=== PATIENT | female | born 1995 | race Two or more races ===

== ENCOUNTER 2016-09-06 13:33 | Emergency (ER) | payer SELFPAY ==
[2016-09-06] MEDS ORDERED: ACETAMINOPHEN 325 MG TABLET PO ONE (14:18)
[2016-09-06] MEDS ORDERED: PREDNISONE 20 MG TABLET PO ONE (14:20)
--- NOTE | 2016-09-06 14:28 | ER Document Report ---
ED Medical Screen (RME) - General Chief Complaint: Rash Stated Complaint: SORE THROAT Mode of Arrival: Ambulatory Information source: Patient Notes: 21 y/o F presents to ED c/o sore throat, chills, and ear pain over the last 3 days. Also reports has noted itchy rash to groin. Denies chest pain or sob. I have greeted and performed a rapid initial assessment of this patient. A comprehensive ED assessment and evaluation of the patient, analysis of test results and completion of the medical decision making process will be conducted by additional ED providers. TRAVEL OUTSIDE OF THE [place] IN LAST 30 DAYS: No - Related Data Allergies/Adverse Reactions: No Known Allergies Allergy (Unverified 09/06/16 14:20) Past Medical History - Social History Chew tobacco use (# tins/day): No Frequency of alcohol use: None Drug Abuse: None Renal/ Medical History: Denies: Hx Peritoneal Dialysis Physical Exam - Vital signs Vitals: Temp Pulse Resp BP Pulse Ox 99.0 F 124 H 20 113/86 H 99 09/06/16 14:12 09/06/16 14:12 09/06/16 14:12 09/06/16 14:12 09/06/16 14:12 - General General appearance: Alert In distress: None - HEENT Pharynx: Erythema, Exudate - Respiratory Respiratory status: No respiratory distress Breath sounds: Normal Course - Vital Signs Vital signs: Temp Pulse Resp BP Pulse Ox 99.0 F 124 H 20 113/86 H 99 09/06/16 14:12 09/06/16 14:12 09/06/16 14:12 09/06/16 14:12 09/06/16 14:12
[2016-09-06 15:55] LABS: APPEARANCE,URINE SLIGHTLY-CLOUDY; BILIRUBIN,URINE NEGATIVE (NEGATIVE); GLUCOSE, URINE NEGATIVE (NEGATIVE); KETONES,URINE 80 mg/dL (NEGATIVE); LEUKOCYTE ESTERASE,URINE SMALL (NEGATIVE); NITRITE,URINE POSITIVE (NEGATIVE); PROTEIN,URINE 100 mg/dL (NEGATIVE); URINE SPECIFIC GRAVITY 1.018
[2016-09-06] MEDS ORDERED: DEXAMETHASONE SOD PHOSPHATE INJ 4 MG/1 ML VIAL IM ONE (18:37)
[2016-09-06] MEDS ORDERED: PENICILLIN G BENZATHINE 1.2 MILLION UNIT/2 ML DISP.SYRIN IM ONE (18:37)
--- NOTE | 2016-09-06 18:37 | ER Document Report ---
HPI - HPI Patient complains to provider of: sore throat, rash, headache, ear pain Onset: Other - 2 days Quality of pain: Achy Severity: Severe Pain Level: 5 Context: Patient presents to the emergency department with multiple complaints fever headache ear pain sore throat. She reports symptoms started approximately 2 days ago. She reports she's vomited twice. Denies diarrhea. Denies exposure to strep. Also reports she has a rash in the creases of her thighs that started a couple days ago also. Denies nausea at this time. Associated Symptoms: Earache, Fever, Vomiting, Sore throat Exacerbated by: Denies Relieved by: Denies Similar symptoms previously: No Recently seen / treated by doctor: No - CONSTITUTIONAL Constitutional: REPORTS: Fever - EENT EENT: REPORTS: Sore Throat, Ear Pain - NEURO Neurology: REPORTS: Headache - DERM Skin Color: Normal Past Medical History - General Information source: Patient Last Menstrual Period: may, - Social History Smoking Status: Current Every Day Smoker Cigarette use (# per day): Yes - recently quit Chew tobacco use (# tins/day): No Frequency of alcohol use: None Drug Abuse: None Occupation: none Lives with: Family Family History: Hypertension Patient has suicidal ideation: No Patient has homicidal ideation: No - Medical History Medical History: Negative Renal/ Medical History: Denies: Hx Peritoneal Dialysis Surgical Hx: Negative Vertical Provider Document - CONSTITUTIONAL Agree With Documented VS: Yes Exam Limitations: No Limitations General Appearance: WD/WN, No Apparent Distress - nontoxic looking - INFECTION CONTROL TRAVEL OUTSIDE OF THE [place] IN LAST 30 DAYS: No - HEENT HEENT: Atraumatic, Normocephalic, PERRLA, Pharyngeal Exudate, Pharyngeal Erythema - No peritonsillar abscess good clear voice no trismus. negative: Conjuctival Injection, Tympanic Membrane Red, Tympanic Membrane Bulging - NECK Neck: Normal Inspection - RESPIRATORY Respiratory: Breath Sounds Normal, No Respiratory Distress - no cough noted, speaks in clear voice, no sob O2 Sat by Pulse Oximetry: 99 - CARDIOVASCULAR Cardiovascular: Regular Rhythm, Tachycardia - GI/ABDOMEN Gastrointestinal: Abdomen Soft, Abdomen Non-Tender - BACK Back: Normal Inspection - MUSCULOSKELETAL/EXTREMETIES Musculoskeletal/Extremeties: MARU MCMAHON - NEURO Level of Consciousness: Awake, Alert, Appropriate Motor/Sensory: No Motor Deficit - DERM Integumentary: Warm, Dry, Rash - bilateral Erythema rash on thigh creases- no discharge, no pustules Course - Re-evaluation Re-evalutation: 09/06/16 18:48 Patient was instructed on all medications. She is nontoxic looking. No shortness of breath no coughing noted during the entire interview and assessment. Patient instructed on penicillin and steroid injection. She was instructed on the importance of follow-up with the primary care provider for recheck within 1 week. - Vital Signs Vital signs: Temp Pulse Resp BP Pulse Ox 99.0 F 124 H 20 113/86 H 99 09/06/16 14:12 09/06/16 14:12 09/06/16 14:12 09/06/16 14:12 09/06/16 14:12 - Laboratory Laboratory results interpreted by me: 09/06/16 15:30 Urine Protein 100 H Urine Ketones 80 H Urine Blood SMALL H Urine Nitrite POSITIVE H Urine Urobilinogen 4.0 H Ur Leukocyte Esterase SMALL H Discharge - Discharge Clinical Impression: Sore throat, Strep throat, Rash UTI (urinary tract infection) Qualifiers: Urinary tract infection type: site unspecified Hematuria presence: with hematuria Qualified Code(s): N39.0 - Urinary tract infection, site not specified Condition: Stable Disposition: HOME, SELF-CARE Instructions: Urinary Tract Infection ([facility]), Strep Throat ([facility]), Trimethoprim- Sulfa ([facility]), Steroid Medication Injection, Family Physicians / Practices Additional Instructions: *You have been evaluated for a sore throat, strep, Urinary tract infection, rash on thigh creases *Take medication as prescribed *Apply cream twice a day, keep the area clean and dry. Do not shave *Warm salt water gargles and throat lozenges for comfort *Change toothbrush after two days of antibiotics *Do not let anyone drink/eat after you *Good hand washing *Push fluids *monitor your temperature take Tylenol as indicated *Follow-up with a primary care provider within one week for recheck *Return to ED for worsening condition change, needs Prescriptions: Miscellaneous Medication [Happy Hiney Cream] 1 applic TOP BID #30 gm Sulfamethoxazole/Trimethoprim [Bactrim Ds Tablet] 1 each PO BID #10 tablet
[2016-09-06 19:15] VITALS: BP 120/79
== END 2016-09-06 19:20 | disposition home or self-care (01) ==
LOC: ER 13:33
DX: J02.0 Streptococcal pharyngitis (principal); N39.0 Urinary tract infection, site not specified; J02.9 Acute pharyngitis, unspecified; R21 Rash and other nonspecific skin eruption; R51 Headache; H92.09 Otalgia, unspecified ear; F17.210 Nicotine dependence, cigarettes, uncomplicated
CPT/HCPCS: 99283; 96372; 87880; 81025; 81001; 87804; J1100; J0561; J7512

== ENCOUNTER 2016-12-28 03:41 | Emergency (ER) | payer OTHER ==
[2016-12-28 04:39] LABS: APPEARANCE,URINE CLOUDY; BILIRUBIN,URINE NEGATIVE (NEGATIVE); GLUCOSE, URINE NEGATIVE (NEGATIVE); KETONES,URINE NEGATIVE (NEGATIVE); LEUKOCYTE ESTERASE,URINE NEGATIVE (NEGATIVE); NITRITE,URINE NEGATIVE (NEGATIVE); PROTEIN,URINE NEGATIVE (NEGATIVE); URINE SPECIFIC GRAVITY 1.028; UROBILINOGEN,URINE NEGATIVE mg/dL (<2.0)
--- NOTE | 2016-12-28 06:11 | ER Document Report ---
ED General - General Chief Complaint: Vaginal Discharge Stated Complaint: VAGINAL BLEEDING AND BURNING Time Seen by Provider: 12/28/16 06:04 Mode of Arrival: Ambulatory Information source: Patient Notes: 21-year-old female 2 para 0 who is currently a few weeks based on last menstrual period presents with complaints of foul-smelling vaginal discharge. Patient had symptoms have been ongoing for 3-4 days, patient took [id number] Monistat and now she is having some burning and blood when she wipes. Patient denies any significant abdominal pain denies any nausea vomiting TRAVEL OUTSIDE OF THE [place] IN LAST 30 DAYS: No - HPI Onset: Other - 3 day duration Onset/Duration: Worse Quality of pain: Burning Severity: Mild Pain Level: 1 Associated symptoms: Other Exacerbated by: Denies Relieved by: Denies Similar symptoms previously: Yes - Patient has had miscarriage recently. Recently seen / treated by doctor: No - Related Data Allergies/Adverse Reactions: No Known Allergies Allergy (Unverified 12/28/16 03:45) Past Medical History - Social History Smoking Status: Never Smoker Cigarette use (# per day): No Chew tobacco use (# tins/day): No Smoking Education Provided: No Family History: Hypertension Renal/ Medical History: Denies: Hx Peritoneal Dialysis Review of Systems - Review of Systems Notes: REVIEW OF SYSTEMS: CONSTITUTIONAL : Denies fever, chills, or sweats. Denies recent illness. EENT: Denies eye, ear, throat, or mouth pain or symptoms. Denies nasal or sinus congestion or discharge. Denies throat, tongue, or mouth swelling or difficulty swallowing. CARDIOVASCULAR: Denies chest pain. Denies palpitations or racing or irregular heart beat. Denies ankle edema. RESPIRATORY: Denies cough, cold, or chest congestion. Denies shortness of breath, difficulty breathing, or wheezing. GASTROINTESTINAL: Denies abdominal pain or distention. Denies nausea, vomiting , or diarrhea. Denies blood in vomitus, stools, or per rectum. Denies black, tarry stools. Denies constipation. GENITOURINARY: Denies difficulty urinating, painful urination, burning, frequency, blood in urine, or discharge. FEMALE GENITOURINARY: admits to vaginal discharge MUSCULOSKELETAL: Denies back or neck pain or stiffness. Denies joint pain or swelling. SKIN: Denies rash, lesions or sores. HEMATOLOGIC : Denies easy bruising or bleeding. LYMPHATIC: Denies swollen, enlarged glands. NEUROLOGICAL: Denies confusion or altered mental status. Denies passing out or loss of consciousness. Denies dizziness or lightheadedness. Denies headache. Denies weakness or paralysis or loss of use of either side. Denies problems with gait or speech. Denies sensory loss, numbness, or tingling. Denies seizures. PHYSICAL EXAMINATION: GENERAL: Well-appearing, well-nourished and in no acute distress. HEAD: Atraumatic, normocephalic. EYES: Pupils equal round and reactive to light, extraocular movements intact, conjunctiva are normal. ENT: Nares patent, oropharynx clear without exudates. Moist mucous membranes. NECK: Normal range of motion, supple without lymphadenopathy LUNGS: Breath sounds clear to auscultation bilaterally and equal. No wheezes rales or rhonchi. HEART: Regular rate and rhythm without murmurs ABDOMEN: Soft, nontender, nondistended abdomen. No guarding, no rebound. No masses appreciated. Female : pelvic exam performed with nurse in the room, white discharge noted Musculoskeletal: Normal range of motion, no pitting or edema. No cyanosis. NEUROLOGICAL: Cranial nerves grossly intact. Normal speech, normal gait. Normal sensory, motor exams PSYCH: Normal mood, normal affect. SKIN: Warm, Dry, normal turgor, no rashes or lesions noted. PSYCHIATRIC: Denies anxiety or stress. Denies depression, suicidal ideation, or homicidal ideation. ALL OTHER SYSTEMS REVIEWED AND NEGATIVE. Dictation was performed using [employer] voice recognition software Physical Exam - Vital signs Vitals: Temp Pulse Resp BP Pulse Ox 97.6 F 102 H 16 118/74 98 12/28/16 03:44 12/28/16 03:44 12/28/16 03:44 12/28/16 03:44 12/28/16 03:44 Course - Re-evaluation Re-evalutation: 12/28/16 06:34 Patient will be sent for an ultrasound otherwise well-appearing in no distress 12/28/16 07:06 No IUP was confirmed on ultrasound, lab work is pending 12/28/16 07:18 I was notified by lab since patient used an intravaginal cream that they are unable to see any white blood cells any yeast or Trichomonas or bacterial vaginosis therefore the wet prep is being canceled 12/28/16 09:26 Patient's quant is noted to be 150, I will have her recheck in 48 hours for reevaluation of her hCG, I will treat her symptomatically for bacterial vaginosis versus yeast infection given that the culture was contaminated from medication that the patient had already used After performing a Medical Screening Examination, I estimate there is LOW risk for ACUTE APPENDICITIS, BOWEL OBSTRUCTION, ACUTE CHOLECYSTITIS, PERFORATED DIVERTICULITIS, INCARCERATED HERNIA, PANCREATITIS, PELVIC INFLAMMATORY DISEASE, PERFORATED ULCER, ECTOPIC , or TUBO-OVARIAN ABSCESS, thus I consider the discharge disposition reasonable. Also, there is no evidence or peritonitis , sepsis, or toxicity. I have reevaluated this patient multiple times and no significant life threatening changes are noted. The patient and I have discussed the diagnosis and risks, and we agree with discharging home with close follow-up with the understanding that symptoms and presentations can change. We also discussed returning to the Emergency Department immediately if new or worsening symptoms occur. We have discussed the symptoms which are most concerning (e.g., bloody stool, fever, changing or worsening pain, vomiting) that necessitate immediate return. - Vital Signs Vital signs: Temp Pulse Resp BP Pulse Ox 97.6 F 102 H 16 118/74 98 12/28/16 03:44 12/28/16 03:44 12/28/16 03:44 12/28/16 03:44 12/28/16 03:44 - Laboratory Result Diagrams: 12/28/16 07:44 12/28/16 07:44 Laboratory results interpreted by me: 12/28/16 12/28/16 03:56 07:44 ALT 57 H Beta HCG, Quant 152.94 H Urine Blood SMALL H Urine HCG, Qual POSITIVE H - Diagnostic Test Radiology reviewed: Image reviewed, Reports reviewed - no iup noted Discharge - Discharge Clinical Impression: Threatened miscarriage Vaginal discharge during Qualifiers: Trimester: first trimester Qualified Code(s): O26.891 - Other specified related conditions, first trimester; N89.8 - Other specified noninflammatory disorders of vagina Condition: Stable Disposition: HOME, SELF-CARE Instructions: Threatened Miscarriage ([facility]) Additional Instructions: return in 48 hours for recheck or return immediately if there are any other concerns Prescriptions: Fluconazole [Diflucan] 150 mg PO ONCE PRN #1 tablet PRN Reason: Metronidazole [Flagyl 500 mg Tablet] 500 mg PO BID #20 tablet Forms: Follow-Up Laboratory Testing
--- NOTE | 2016-12-28 06:59 | RADIOLOGY REPORT (SQ) ---
EXAM DESCRIPTION: U/S OB TRANSVAGINAL W/O DOP COMPLETED DATE/TIME: 12/28/2016 6:51 am REASON FOR STUDY: + preg vag bleed COMPARISON: None. TECHNIQUE: Transvaginal static and realtime grayscale images acquired of the pelvis. Additional nasir cted spectral and color Doppler images recorded. All images stored on PACs. BHCG: Not available. LIMITATIONS: None. FINDINGS: UTERUS: No visualized intrauterine . 1.7 cm thickness of the endometrium. RIGHT ADNEXA: Normal ovary with normal vascular flow. No adnexal free fluid. No adnexal masses. 3.8 cm. LEFT ADNEXA: Normal ovary with normal vascular flow. No adnexal free fluid. No adnexal masses. 3.4 cm. FREE FLUID: None. OTHER: No other significant finding. IMPRESSION: NO VISUALIZED INTRA- OR EXTRAUTERINE . ECTOPIC CANNOT BE EXCLUDED. FOLLOW-UP ULTRASOUND AND SERIAL BHCG LEVELS STRONGLY RECOMMENDED TO ACCURATELY ASSESS STATU S. TECHNICAL DOCUMENTATION: JOB ID: [id number]- All Rights Reserved
[2016-12-28 07:55] LABS: ABSOLUTE BASOPHILS # (AUTO) 0.1 10^3/uL (0.0-0.2); ABSOLUTE EOSINOPHILS # (AUTO) 0.3 10^3/uL (0.0-0.6); ABSOLUTE LYMPHOCYTES (AUTO) 2.4 10^3/uL (0.5-4.7); ABSOLUTE MONOCYTES (AUTO) 0.5 10^3/uL (0.1-1.4); BASOPHILS % (AUTO) 0.6 % (0-2); HEMATOCRIT 38.8 % (36.0-47.0); HEMOGLOBIN 13.2 g/dL (12.0-15.5); HGB HCT DIFFERENCE 0.8; LYMPHOCYTES % (AUTO) 25.9 % (13-45); MEAN CORPUSCULAR HEMOGLOBIN 29.5 pg (27.0-33.4); MEAN CORPUSCULAR HGB CONC 34.1 g/dL (32.0-36.0); MEAN CORPUSCULAR VOLUME 87 fl (80-97); MONOCYTES % (AUTO) 5.4 % (3-13); RED BLOOD COUNT 4.48 10^6/uL (3.72-5.28); RED CELL DISTRIBUTION WIDTH 12.4 % (11.5-14.0); SEGMENTED NEUTROPHILS % (AUTO) 65.1 % (42-78); WHITE BLOOD COUNT 9.3 10^3/uL (4.0-10.5)
[2016-12-28 09:05] LABS: CHLAM PCR NOT DETECTED (NOT DETECT)
[2016-12-28 09:06] LABS: ALANINE AMINOTRANSFERASE 57 U/L (9-52); ALBUMIN 4.5 g/dL (3.5-5.0); ALKALINE PHOSPHATASE 84 U/L (38-126); ANION GAP 15 (5-19); ASPARTATE AMINO TRANSFERASE 28 U/L (14-36); BILIRUBIN,DIRECT 0.3 mg/dL (0.0-0.4); BILIRUBIN,TOTAL 0.5 mg/dL (0.2-1.3); BLOOD UREA NITROGEN 8 mg/dL (7-20); CALCIUM 9.9 mg/dL (8.4-10.2); CARBON DIOXIDE 22 mmol/L (22-30); CHLORIDE 104 mmol/L (98-107); CREATININE RESULT 0.55 mg/dL (0.52-1.25); GLUCOSE 100 mg/dL (75-110); POTASSIUM 4.5 mmol/L (3.6-5.0); SODIUM 140.6 mmol/L (137-145); TOTAL PROTEIN 7.7 g/dL (6.3-8.2)
[2016-12-28 09:42] VITALS: BP 120/78
== END 2016-12-28 09:44 | disposition home or self-care (01) ==
LOC: ER 03:41
DX: O20.0 Threatened abortion (principal); O26.891 Other specified pregnancy related conditions, first trimester; N89.8 Other specified noninflammatory disorders of vagina; Z3A.01 Less than 8 weeks gestation of pregnancy
CPT/HCPCS: 36415; 76817; 80053; 81001; 81025; 84702; 85025; 86900; 86901; 87210; 87491; 87591; 99283

== ENCOUNTER 2016-12-30 14:28 | Emergency (ER) | payer OTHER ==
--- NOTE | 2016-12-30 16:05 | ER Document Report ---
HPI - HPI Patient complains to provider of: low hcg and vaginal spotting Pain Level: Denies Context: Patient is a 21 year old female who presents complaining of vaginal bleeding since 12/29 when she was evaluated here and told to follow up in 48 hours for repeat blood work. Vaginal bleeding has been stable described as spotting and less then before. LMP was two months ago. admits to chronic pelvic cramps since she learned she was but minimal discomfort without pelvic or abdominal pain, n/v/d/c. Denies fever or chills. No pcp, will be established with [place] [facility] january 15 - Skin Color: Normal Past Medical History - Social History Smoking Status: Former Smoker Chew tobacco use (# tins/day): No Frequency of alcohol use: None Drug Abuse: None Family History: Hypertension Patient has suicidal ideation: No Patient has homicidal ideation: No Renal/ Medical History: Denies: Hx Peritoneal Dialysis Surgical Hx: Negative - Immunizations Hx Diphtheria, Pertussis, Tetanus Vaccination: Yes Vertical Provider Document - CONSTITUTIONAL Agree With Documented VS: Yes Exam Limitations: No Limitations General Appearance: WD/WN, No Apparent Distress Notes: PHYSICAL EXAM GENERAL: Alert, interacts well. HEAD: Normocephalic, atraumatic. EYES: Pupils equal, round, and reactive to light. Extraocular movements intact. ENT: Oral mucosa moist, tongue midline. NECK: Full range of motion. Supple. Trachea midline. LUNGS: Clear to auscultation bilaterally, no wheezes, rales, or rhonchi. No respiratory distress. HEART: Regular rate and rhythm. No murmurs, gallops, or rubs. ABDOMEN: Soft, nondistended, nontender. No guarding, rebound, or rigidity.. Bowel sounds present in all 4 quadrants. EXTREMITIES: Moves all 4 extremities spontaneously. No edema, radial and dorsalis pedis pulses 2/4 bilaterally. No cyanosis. NEUROLOGICAL: Alert and oriented x4. Normal speech. PSYCH: Normal affect, normal mood. SKIN: Warm, dry, normal turgor. No rashes or lesions noted. - INFECTION CONTROL TRAVEL OUTSIDE OF THE [place] IN LAST 30 DAYS: No Course - Re-evaluation Re-evalutation: 12/30/16 16:05 The 21-year-old female hemodynamic stable, no acute distress and afebrile. Initial beta-hCG and visit on December 29 was 152 and repeat today was 93. Discussed with patient that these findings support a threatened miscarriage and that she is indicated to follow-up in 48 hours for repeat blood work. Discussed signs and symptoms. Indicating return to the emergency department. Patient agrees with plan. - Laboratory Result Diagrams: 12/30/16 16:26 12/30/16 16:26 Discharge - Discharge Clinical Impression: Threatened miscarriage Condition: Good Disposition: HOME, SELF-CARE Instructions: Threatened Miscarriage ([facility]), Repeat Blood Test ([facility]), [employer] Forms: Follow-Up Laboratory Testing [facility] - Follow up as needed
[2016-12-30 16:36] LABS: ABSOLUTE BASOPHILS # (AUTO) 0.1 10^3/uL (0.0-0.2); ABSOLUTE EOSINOPHILS # (AUTO) 0.3 10^3/uL (0.0-0.6); ABSOLUTE LYMPHOCYTES (AUTO) 2.8 10^3/uL (0.5-4.7); ABSOLUTE MONOCYTES (AUTO) 0.6 10^3/uL (0.1-1.4); BASOPHILS % (AUTO) 0.7 % (0-2); EOSINOPHILS % (AUTO) 2.7 % (0-6); HEMATOCRIT 39.7 % (36.0-47.0); HEMOGLOBIN 13.3 g/dL (12.0-15.5); HGB HCT DIFFERENCE 0.2; LYMPHOCYTES % (AUTO) 23.8 % (13-45); MEAN CORPUSCULAR HEMOGLOBIN 29.3 pg (27.0-33.4); MEAN CORPUSCULAR HGB CONC 33.6 g/dL (32.0-36.0); MEAN CORPUSCULAR VOLUME 87 fl (80-97); MONOCYTES % (AUTO) 5.4 % (3-13); RED BLOOD COUNT 4.54 10^6/uL (3.72-5.28); RED CELL DISTRIBUTION WIDTH 12.5 % (11.5-14.0); SEGMENTED NEUTROPHILS % (AUTO) 67.4 % (42-78); WHITE BLOOD COUNT 11.9 10^3/uL (4.0-10.5)
[2016-12-30 16:58] LABS: ANION GAP 13 (5-19); BLOOD UREA NITROGEN 10 mg/dL (7-20); CALCIUM 10.3 mg/dL (8.4-10.2); CARBON DIOXIDE 22 mmol/L (22-30); CHLORIDE 106 mmol/L (98-107); CREATININE RESULT 0.56 mg/dL (0.52-1.25); GLUCOSE 88 mg/dL (75-110); POTASSIUM 4.3 mmol/L (3.6-5.0); SODIUM 141.4 mmol/L (137-145)
== END 2016-12-30 16:55 | disposition home or self-care (01) ==
LOC: ER 14:28
DX: O20.0 Threatened abortion (principal); O26.899 Other specified pregnancy related conditions, unspecified trimester; R10.2 Pelvic and perineal pain; Z3A.00 Weeks of gestation of pregnancy not specified; Z87.891 Personal history of nicotine dependence
CPT/HCPCS: 36415; 80048; 85025; 99284

== ENCOUNTER → 2016-12-30 | Outpatient (CLI) | payer OTHER | LOC: OD 09:51 | PROVIDERS: ATTEND Emergency Medicine | DX: N93.9 Abnormal uterine and vaginal bleeding, unspecified (principal) | CPT/HCPCS: 36415; 84702 ==

== ENCOUNTER 2017-08-16 23:47 | Emergency (ER) | payer OTHER ==
[2017-08-17] MEDS ORDERED: ONDANSETRON 4 MG TAB.RAPDIS PO ONE (01:04)
[2017-08-17] MEDS ORDERED: DEXAMETHASONE SOD PHOS INJ 10 MG/1 ML VIAL IM ONE (01:11)
[2017-08-17] MEDS ORDERED: KETOROLAC TROMETHAMINE 60 MG/2 ML SDV IM ONE (01:11)
--- NOTE | 2017-08-17 01:15 | ER Document Report ---
ED Medical Screen (RME) - General Chief Complaint: Sore Throat Stated Complaint: SORE THROAT Time Seen by Provider: 08/17/17 01:04 Mode of Arrival: Ambulatory Information source: Patient Notes: 22-year-old female presented to ED for fever and sore throat for 3 days. She states she is gotten to the point now where it is difficult for her to swallow. She states she has been nauseated this evening and has started vomiting while in the emergency room. She states she always has a very elevated pulse when she is sick and while in the emergency room her pulse is 114 O2 sats 99% with a temperature of 98 7. Her tonsils are enlarged and erythematous her oropharynx strawberry appearing. She does have a lot of postnasal drip. Her voice is slightly muffled. I have greeted and performed a rapid initial assessment of this patient. A comprehensive ED assessment and evaluation of the patient, analysis of test results and completion of medical decision making process will be conducted by an additional ED providers. TRAVEL OUTSIDE OF THE [place] IN LAST 30 DAYS: No - Related Data Allergies/Adverse Reactions: No Known Allergies Allergy (Verified 08/16/17 23:49) Past Medical History Renal/ Medical History: Denies: Hx Peritoneal Dialysis - Immunizations Hx Diphtheria, Pertussis, Tetanus Vaccination: Yes Physical Exam - Vital signs Vitals: Temp Pulse Resp BP Pulse Ox 97.5 F 120 H 20 132/92 H 99 08/17/17 00:02 08/17/17 00:02 08/17/17 00:02 08/17/17 00:02 08/17/17 00:02 Course - Vital Signs Vital signs: Temp Pulse Resp BP Pulse Ox 97.5 F 120 H 20 132/92 H 99 08/17/17 00:02 08/17/17 00:02 08/17/17 00:02 08/17/17 00:02 08/17/17 00:02
[2017-08-17 01:34] LABS: APPEARANCE,URINE CLEAR; BILIRUBIN,URINE NEGATIVE (NEGATIVE); COLOR,URINE STRAW; GLUCOSE, URINE NEGATIVE (NEGATIVE); KETONES,URINE NEGATIVE (NEGATIVE); LEUKOCYTE ESTERASE,URINE NEGATIVE (NEGATIVE); NITRITE,URINE NEGATIVE (NEGATIVE); PROTEIN,URINE NEGATIVE (NEGATIVE); URINE SPECIFIC GRAVITY 1.005; UROBILINOGEN,URINE NEGATIVE mg/dL (<2.0)
[2017-08-17 02:17] LABS: A TYPE INFLUENZA AG NEGATIVE (NEGATIVE); B INFLUENZA AG NEGATIVE (NEGATIVE)
[2017-08-17] MEDS ORDERED: ONDANSETRON ODT 4 MG TAB (6 TAB/ER DISP) PO PRN (02:33)
[2017-08-17] MEDS ORDERED: PENICILLIN G BENZATHINE 1.2 MILLION UNIT/2 ML DISP.SYRIN IM ONE (02:33)
--- NOTE | 2017-08-17 02:36 | ER Document Report ---
ED General - General Chief Complaint: Sore Throat Stated Complaint: SORE THROAT Time Seen by Provider: 08/17/17 01:04 Mode of Arrival: Ambulatory Notes: Patient is a 22-year-old female presents with complaint of sore throat. She says she has a history recurrent strep infections. She has had a previous tonsillectomy. She has had over the last 24 hours she has had worsening sore throat and fevers at home. No vomiting. She says it hurts to swallow but she is able to still swallow. When she first arrived she was given a shot of Decadron by the nurse practitioner in triage. She is since then she cannot open her mouth much more easily and her voice is getting some better but she still has pain. She denies any other complaints at this time. TRAVEL OUTSIDE OF THE [place] IN LAST 30 DAYS: No - Related Data Allergies/Adverse Reactions: No Known Allergies Allergy (Verified 08/16/17 23:49) Past Medical History - General Information source: Patient - Social History Smoking Status: Former Smoker Chew tobacco use (# tins/day): No Frequency of alcohol use: None Drug Abuse: None Family History: Hypertension Patient has suicidal ideation: No Patient has homicidal ideation: No Renal/ Medical History: Denies: Hx Peritoneal Dialysis Past Surgical History: Reports: Hx Orthopedic Surgery, Hx Tonsillectomy - Immunizations Hx Diphtheria, Pertussis, Tetanus Vaccination: Yes Review of Systems - Review of Systems Notes: My Normal Review Basic REVIEW OF SYSTEMS: CONSTITUTIONAL : Fever EENT: Sore throat. CARDIOVASCULAR: Denies chest pain. RESPIRATORY: Denies cough, cold, or chest congestion. Denies shortness of breath, difficulty breathing, or wheezing. GASTROINTESTINAL: Denies abdominal pain. Denies nausea, vomiting, or diarrhea. MUSCULOSKELETAL: Denies neck or back pain or joint pain or swelling. SKIN: Denies rash or skin lesions. NEUROLOGICAL: Denies altered mental status or loss of consciousness. Denies headache. Denies weakness or paralysis or loss of use of either side. Denies problems with gait or speech. Denies sensory or motor loss. ALL OTHER SYSTEMS REVIEWED AND NEGATIVE. Physical Exam - Vital signs Vitals: Temp Pulse Resp BP Pulse Ox 97.5 F 120 H 20 132/92 H 99 08/17/17 00:02 08/17/17 00:02 08/17/17 00:02 08/17/17 00:02 08/17/17 00:02 - Notes Notes: General Appearance: Well nourished, alert, cooperative, no acute distress, no obvious discomfort. Well-appearing. Vitals: reviewed, See vital signs table. Head: no swelling or tenderness to the head Eyes: PERRL, EOMI, Conjuctiva clear Mouth: No decreasd moisture Throat: Erythematous posterior pharynx. No swelling or induration that would cause concern of peritonsillar abscess. Patient no longer has trismus and is able to fully open her mouth. Neck: Supple, no neck tenderness, No thyromegaly Lungs: No wheezing, No rales, No rhonci, No accessory muscle use, good air exchange bilaterally. Heart: Normal rate, Regular rythm, No murmur, no rub Extremities: strength 5/5 in all extremities, good pulses in all extremities, no swelling or tenderness in the extremitie Skin: warm, dry, appropriate color, no rash Neuro: speech clear, oriented x 3, normal affect, responds appropriately to questions. Course - Re-evaluation Re-evalutation: 08/17/17 06:45 Patient is very well-appearing. I feel patient is safe to be discharged home. It seems that she started have improvement after Decadron. I will also give her a shot of penicillin being that her throat is consistent with probable strep pharyngitis and she has a history recurrent strep infections. I informed her return to ER immediately if she has difficulty breathing, difficulty swallowing, or feels that she is worsening in any way. Patient does not have findings consistent with peritonsillar abscess. She has no swelling or inflammation and what would be the peritonsillar spaces. Her uvula is midline. Dictation of this chart was performed using voice recognition software; therefore, there may be some unintended grammatical errors. - Vital Signs Vital signs: Temp Pulse Resp BP Pulse Ox 98.7 F 90 18 103/64 98 08/17/17 02:57 08/17/17 02:57 08/17/17 02:57 08/17/17 02:57 08/17/17 02:57 Discharge - Discharge Clinical Impression: Pharyngitis Qualifiers: Pharyngitis/tonsillitis etiology: unspecified etiology Qualified Code(s): J02.9 - Acute pharyngitis, unspecified Condition: Good Disposition: HOME, SELF-CARE Additional Instructions: Your history and physical exam findings are consistent with strep pharyngitis. We will give you a shot of penicillin. We also gave you a shot of Decadron which is a steroid. I will send you home with Zofran. Zofran is a medicine you can take for nausea. Please take 1 tablet as needed for vomiting not to exceed 1 tablet every 4 hours. Please return to the ER immediately if you have difficulty breathing, worsening difficulty swallowing, inability to open your mouth, fevers, or feel that you are worsening.
[2017-08-17] MEDS ORDERED: FLUCONAZOLE 100 MG TABLET PO ONE (02:47)
[2017-08-17 02:59] VITALS: BP 103/64
== END 2017-08-17 02:57 | disposition home or self-care (01) ==
LOC: ER 23:47
DX: J02.9 Acute pharyngitis, unspecified (principal); R50.9 Fever, unspecified; Z87.891 Personal history of nicotine dependence
CPT/HCPCS: 99283; 96372; 87070; 87880; 81025; 87077; 81001; 87804; J1885; S0119; J0561; J1100

== ENCOUNTER 2018-06-11 18:29 | Emergency (ER) | payer OTHER ==
--- NOTE | 2018-06-11 18:45 | ER Document Report ---
HPI - HPI Patient complains to provider of: back pain Time Seen by Provider: 06/11/18 18:45 Onset: Other - 5 Months Quality of pain: Achy Severity: Severe Pain Level: 5 Context: Patient presents emergency department with complaints of low back pain for the past 5 months. Reports she started working at [employer] where she sits all day. She will reports they do have ergonomic chairs but her back aches after she works. Denies fever vomiting diarrhea. Denies urinary bowel incontinence or retention. Denies numbness or tingling. Patient ambulating without problems. Denies trauma. Reports she is taking Motrin on and off without relief of symptoms. Patient was asked about denies, reports there is no way. Denies dysuria Past Medical History - General Information source: Patient Last Menstrual Period: may 18- denies - Social History Smoking Status: Unknown if Ever Smoked Cigarette use (# per day): No Frequency of alcohol use: None Drug Abuse: None Occupation: [employer] Lives with: Family Family History: Hypertension Patient has suicidal ideation: No Patient has homicidal ideation: No Renal/ Medical History: Denies: Hx Peritoneal Dialysis Psychiatric Medical History: Reports: Hx Anxiety Past Surgical History: Reports: Hx Orthopedic Surgery, Hx Tonsillectomy - Immunizations Hx Diphtheria, Pertussis, Tetanus Vaccination: Yes Vertical Provider Document - CONSTITUTIONAL Agree With Documented VS: Yes Exam Limitations: No Limitations General Appearance: WD/WN, No Apparent Distress - INFECTION CONTROL TRAVEL OUTSIDE OF THE [place] IN LAST 30 DAYS: No - HEENT HEENT: Atraumatic, Normocephalic - NECK Neck: Normal Inspection, Supple. negative: Lymphadenopathy-Left, Lymphadenopathy-Right - RESPIRATORY Respiratory: Breath Sounds Normal, No Respiratory Distress - CARDIOVASCULAR Cardiovascular: Regular Rate - GI/ABDOMEN Gastrointestinal: Abdomen Soft, Abdomen Non-Tender - BACK Back: Normal Inspection - No obvious deformity good distal movement and sensation negative straight leg test no weakness, ambulates without problems - MUSCULOSKELETAL/EXTREMETIES Musculoskeletal/Extremeties: MAEW, FROM, Non-Tender - NEURO Level of Consciousness: Awake, Alert, Appropriate Motor/Sensory: No Motor Deficit - DERM Integumentary: Warm, Dry Adult Front & Back Diagram: 1 - Orts low backache Course - Re-evaluation Re-evalutation: 06/11/18 19:03 Patient was instructed on conservative treatment for low back pain. To include ibuprofen and Flexeril. Patient was cautioned that she cannot take these medications if she is . She reports she is not no way. Patient was instructed to follow-up with her primary care provider she is dependent and able to follow-up with somebody. She was instructed to follow-up with a chiropractor her primary care provider. Dictation of this chart was performed using voice recognition software; therefore, there may be some unintended grammatical errors. Discharge - Discharge Clinical Impression: Low back pain Qualifiers: Chronicity: unspecified Back pain laterality: bilateral Sciatica presence: without sciatica Qualified Code(s): M54.5 - Low back pain Condition: Stable Disposition: HOME, SELF-CARE Instructions: Ice Packs ([facility]), Low Back Pain ([facility]), Warm Packs ([facility]), Muscle Relaxers ([facility]), Chiropractor, Ibuprofen (General) ([facility]) Additional Instructions: *You have been evaluated for back pain *Take medication as prescribed *Rest/Ice packs and heat as indicated *Follow up with a primary care provider within one week for recheck *Return to ED for worsening condition, changes, needs, concerns Prescriptions: Cyclobenzaprine HCl [Flexeril 5 mg Tablet] 5 mg PO TID #15 tablet Ibuprofen [Motrin 800 mg Tablet] 800 mg PO TID #30 tablet
[2018-06-11 19:02] VITALS: BP 127/86
== END 2018-06-11 19:06 | disposition home or self-care (01) ==
LOC: ER 18:29
DX: M54.5 Low back pain (principal)
CPT/HCPCS: 99283

== ENCOUNTER 2018-12-02 23:58 | Emergency (ER) | payer SELFPAY ==
--- NOTE | 2018-12-03 01:26 | ER Document Report ---
HPI - HPI Time Seen by Provider: 12/03/18 01:09 Pain Level: 5 Context: Patient is a 23-year-old female who presents the emergency department complaints. She states that she has had sinus pressure for the past week and has progressively gotten worse. She states that she also has left ear pain with drainage. States she has a sore throat, headaches, fever, and vomiting. Her vomiting and diarrhea started today, but she is able to keep food down. Patient has also been taking Afrin, NyQuil, DayQuil, and ibuprofen to help with her symptoms, but continues to have left ear pain and sinus pressure. Past medical history includes " heart conditions" but the patient states that her doctors have not found out why she has her heart problems. She currently takes control. - CONSTITUTIONAL Constitutional: REPORTS: Fever. DENIES: Chills - EENT EENT: REPORTS: Sore Throat, Ear Pain - Left, drainage, Nasal Drainage-Clear, Congestion. DENIES: Nasal Drainage-Purulent, Eye problems Notes: Maxillary sinus pain - NEURO Neurology: REPORTS: Headache, Weakness. DENIES: Vision blurred, Dizzinesss / Vertigo - CARDIOVASCULAR Cardiovascular: DENIES: Chest pain - RESPIRATORY Respiratory: REPORTS: Coughing. DENIES: Trouble Breathing - GASTROINTESTINAL Gastrointestinal: REPORTS: Nausea, Patient vomiting. DENIES: Abdominal Pain, Diarrhea - URINARY Urinary: DENIES: Dysuria - REPRODUCTIVE Reproductive: DENIES: : - MUSCULOSKELETAL Musculoskeletal: DENIES: Extremity pain - DERM Skin Color: Normal Skin Problems: None Past Medical History - Social History Smoking Status: Current Some Day Smoker Frequency of alcohol use: None Drug Abuse: None Family History: Hypertension Patient has suicidal ideation: No Patient has homicidal ideation: No Renal/ Medical History: Denies: Hx Peritoneal Dialysis Psychiatric Medical History: Reports: Hx Anxiety Past Surgical History: Reports: Hx Orthopedic Surgery, Hx Tonsillectomy - Immunizations Hx Diphtheria, Pertussis, Tetanus Vaccination: Yes Vertical Provider Document - CONSTITUTIONAL Agree With Documented VS: Yes Exam Limitations: No Limitations General Appearance: No Apparent Distress - INFECTION CONTROL TRAVEL OUTSIDE OF THE [place] IN LAST 30 DAYS: No - HEENT HEENT: Atraumatic, Normocephalic, PERRLA, Pharyngeal Erythema, Tympanic Membrane Red - Left, With purulent drainage, Tympanic Membrane Bulging. negative: Pharyngeal Exudate Notes: Tender maxillary and frontal sinuses bilaterally. Erythema, purulent drainage, and edema noted to left external auditory canal. - NECK Neck: Normal Inspection, Supple - RESPIRATORY Respiratory: Breath Sounds Normal, No Respiratory Distress - CARDIOVASCULAR Cardiovascular: Regular Rate, Regular Rhythm Pulses: Normal: Radial - MUSCULOSKELETAL/EXTREMETIES Musculoskeletal/Extremeties: FROM - NEURO Level of Consciousness: Awake, Alert, Appropriate Motor/Sensory: No Motor Deficit, No Sensory Deficit - DERM Integumentary: Warm, Dry, No Rash Course - Re-evaluation Re-evalutation: 12/03/18 01:26 Patient's physical exam is consistent with left otitis media and left otitis externa. She will be started on Ciprodex and given Augmentin for coverage of a sinus infection also. Patient does have maxillary and frontal sinus pain upon palpation. Patient does not have tenderness noted to her mastoid process. I have a very low suspicion for mastoiditis. Patient's uvula is midline, ruling out any peritonsillar abscess. I have instructed her to stop using her Afrin. I will prescribe her Flonase. She will follow-up with her primary care provider. Patient is in agreement with this plan. Verbal discharge instructions were given to the patient. They verbalized understanding. They are stable for discharge. - Vital Signs Vital signs: Temp Pulse Resp BP Pulse Ox 97.5 F 86 16 122/79 98 12/03/18 00:08 12/03/18 00:08 12/03/18 00:08 12/03/18 00:08 12/03/18 00:08 Discharge - Discharge Clinical Impression: Otitis media Qualifiers: Otitis media type: mucoid Chronicity: acute Laterality: left Qualified Code(s): H65.112 - Acute and subacute allergic otitis media (mucoid) (sanguinous) (serous), left ear Otitis externa Qualifiers: Otitis externa type: noninfectious Noninfectious otitis externa type: other type Chronicity: acute Laterality: left Qualified Code(s): H60.592 - Other noninfective acute otitis externa, left ear Condition: Stable Disposition: HOME, SELF-CARE Instructions: Use of Ear Drops ([facility]), Otitis Externa ([facility]) Additional Instructions: You are seen today in the emergency department for sinus pressure, ear pain, fever, vomiting, and an upset stomach. You have an inner ear infection and an outer ear infection. You were provided eardrops here in the emergency department. Please place 4 drops in your left ear twice a day for 7 days. You are also being started on Augmentin and antibiotic. This will cover both your ear infection in your sinus infection. Please take all your antibiotics as prescribed. Please stop taking your Afrin. You are also being started on Flonase. Please use as directed. You are being sent home with Zofran, medication for nausea and vomiting. Take 1 tablet every 4-6 hours as needed for nausea and vomiting. You are also being given Pepcid, medication to help with your stomach. You could take 1 tablet twice a day as needed. You can take Tylenol 1000 mg and ibuprofen 600 mg every 6 hours for your pain and fever. Prescriptions: Acetaminophen [Acetaminophen Extra Strength] 1,000 mg PO Q6HP PRN #30 tablet PRN Reason: Pain Scale Of 1 Amox Tr/Potassium Clavulanate [Augmentin 875-125 Tablet] 1 tab PO BID 10 Days #20 tablet RX: Famotidine [Pepcid 20 mg Tablet] 20 mg PO BID #12 tablet Fluticasone Propionate [Flonase Nasal Vernalis 50 Mcg/Vernalis 16 gm] 2 sprays NASL DAILY #1 inhaler
[2018-12-03] MEDS ORDERED: ONDANSETRON HCL INJ/PF 4 MG/2 ML SDV IV ONE (01:28)
[2018-12-03] MEDS ORDERED: CIPROFLOXACIN HCL/DEXAMETH OTIC DROP 7.5 ML AS ONE (01:28)
[2018-12-03] MEDS ORDERED: AMOXICILLIN TR/POT CLAVULANATE 500-125 MG TAB PO ONE (01:28)
[2018-12-03] MEDS ORDERED: ONDANSETRON ODT 4 MG TAB (6 TAB/ER DISP) PO PRN (01:31)
[2018-12-03 01:59] VITALS: BP 117/78
== END 2018-12-03 01:59 | disposition home or self-care (01) ==
LOC: ER 23:58
DX: H65.112 Acute and subacute allergic otitis media (mucoid) (sanguinous) (serous), left ear (principal); H60.592 Other noninfective acute otitis externa, left ear; J32.9 Chronic sinusitis, unspecified; J02.9 Acute pharyngitis, unspecified; J34.89 Other specified disorders of nose and nasal sinuses; R51 Headache; R50.9 Fever, unspecified; R19.7 Diarrhea, unspecified; R53.1 Weakness; R05 Cough; R11.2 Nausea with vomiting, unspecified; Z79.3 Long term (current) use of hormonal contraceptives; F17.200 Nicotine dependence, unspecified, uncomplicated
CPT/HCPCS: 99283; J3490

== ENCOUNTER 2019-01-20 00:45 | Emergency (ER) | payer SELFPAY ==
--- NOTE | 2019-01-20 04:02 | ER Document Report ---
HPI - HPI Time Seen by Provider: 01/20/19 03:23 Pain Level: 5 Context: Patient is a 23-year-old female that comes to the emergency department for chief complaint of rectal pain for the past 2 days. She states she had a painful bowel movement earlier. She denies rectal bleeding, injury, abdominal pain, flank pain otherwise. She does admit to recent constipation. She denies fever/chills, nausea/vomiting. She denies any daily medications except control. Past medical history of tonsillectomy and orthopedic surgeries. Denies any medical history otherwise. - REPRODUCTIVE Reproductive: DENIES: : - DERM Skin Color: Normal Past Medical History - General Information source: Patient - Social History Smoking Status: Never Smoker Chew tobacco use (# tins/day): No Frequency of alcohol use: Occasional Drug Abuse: Marijuana Lives with: Family Family History: Hypertension Patient has suicidal ideation: No Patient has homicidal ideation: No Renal/ Medical History: Denies: Hx Peritoneal Dialysis Psychiatric Medical History: Reports: Hx Anxiety Past Surgical History: Reports: Hx Orthopedic Surgery, Hx Tonsillectomy - Immunizations Hx Diphtheria, Pertussis, Tetanus Vaccination: Yes Vertical Provider Document - CONSTITUTIONAL General Appearance: WD/WN, No Apparent Distress - INFECTION CONTROL TRAVEL OUTSIDE OF THE [place] IN LAST 30 DAYS: No - HEENT HEENT: Atraumatic, Normal ENT Exam, Normocephalic - NECK Neck: Normal Inspection - RESPIRATORY Respiratory: Breath Sounds Normal - CARDIOVASCULAR Cardiovascular: Regular Rate, Regular Rhythm - GI/ABDOMEN Gastrointestinal: Abdomen Soft. negative: Abdomen Non-Tender - Abdominal exam is benign. There is a small external hemorrhoid noted at the 4 o'clock position and also an internal hemorrhoid noted on examination in a similar location. There is no severe tenderness. There is no induration, fluctuance, or erythema suggesting an abscess. No fissure noted. No current bleeding. Otherwise unremarkable exam. Exam performed with Anette LOPES present at bedside. - BACK Back: Normal Inspection - MUSCULOSKELETAL/EXTREMETIES Musculoskeletal/Extremeties: MAEW, FROM, Non-Tender - NEURO Level of Consciousness: Awake, Alert, Appropriate Motor/Sensory: No Motor Deficit, No Sensory Deficit - DERM Integumentary: Warm, Dry, No Rash Course - Re-evaluation Re-evalutation: Exam indicates internal and external hemorrhoid without evidence for abscess or other infection on exam. No other concerning findings noted. This is also consistent with patient's reported recent constipation. Patient will be treated for her small hemorrhoids, discussed details, follow-up, return precautions. Patient states understanding and agreement. - Vital Signs Vital signs: Temp Pulse Resp BP Pulse Ox 98.3 F 78 16 113/79 100 01/20/19 01:17 01/20/19 01:17 01/20/19 01:17 01/20/19 01:01/20/19 01:17 Discharge - Discharge Clinical Impression: Rectal pain Condition: Stable Disposition: HOME, SELF-CARE Additional Instructions: Your evaluation is consistent with dilated veins at the internal and external area consistent with developing hemorrhoids. Recommendation is to take stool softeners for the next several days, apply the topical cream to the painful area, use over the counter Tucks cleansing pads, and perform warm sitz-baths. Increase fiber in your diet. Avoid any straining with bowel movements, avoid long periods of time on the toilet. You should call the doctor or return if you develop fever, increasing pain, or an enlarging mass around the anus, or if you simply fail to improve with treatment. Prescriptions: Docusate Sodium [Colace 100 mg Capsule] 100 mg PO ASDIR PRN #30 capsule PRN Reason: Hydrocortisone [Proctozone-Hc] 30 gm RC ASDIR PRN #1 cream.gm. PRN Reason: Forms: Return to Work
[2019-01-20 04:33] VITALS: BP 124/82
== END 2019-01-20 04:33 | disposition home or self-care (01) ==
LOC: ER 00:45
DX: K62.89 Other specified diseases of anus and rectum (principal)
CPT/HCPCS: 99283

== ENCOUNTER 2019-07-15 18:33 | Emergency (ER) | payer SELFPAY ==
--- NOTE | 2019-07-15 19:13 | ER Document Report ---
ED Medical Screen (RME) - General Chief Complaint: Vomiting Stated Complaint: VOMITING,DIZZINESS,ABDOMINAL PAIN Time Seen by Provider: 07/15/19 19:06 Mode of Arrival: Ambulatory Information source: Patient Notes: 24-year-old female with complaints of abdominal cramps nausea vomiting and possible . She reports that she had a miscarriage approximately 1 month ago. She reports she has had sex since then. She also reports she did take a test x3. 1 of them look like she was the other 2 did not. Patient is G5, P0 denies pain with void I have greeted and performed a rapid initial assessment of this patient. A comprehensive ED assessment and evaluation of the patient, analysis of test results and completion of the medical decision making process will be conducted by additional ED providers. TRAVEL OUTSIDE OF THE [place] IN LAST 30 DAYS: No - Related Data Allergies/Adverse Reactions: No Known Allergies Allergy (Verified 08/16/17 23:49) Past Medical History Renal/ Medical History: Denies: Hx Peritoneal Dialysis Psychiatric Medical History: Reports: Hx Anxiety Past Surgical History: Reports: Hx Orthopedic Surgery, Hx Tonsillectomy - Immunizations Hx Diphtheria, Pertussis, Tetanus Vaccination: Yes
[2019-07-15 19:52] LABS: ABSOLUTE BASOPHILS # (AUTO) 0.1 10^3/uL (0.0-0.2); ABSOLUTE EOSINOPHILS # (AUTO) 0.3 10^3/uL (0.0-0.6); ABSOLUTE LYMPHOCYTES (AUTO) 4.3 10^3/uL (0.5-4.7); ABSOLUTE MONOCYTES (AUTO) 0.6 10^3/uL (0.1-1.4); ABSOLUTE NEUT (AUTO) 8.2 10^3/uL (1.7-8.2); BASOPHILS % (AUTO) 0.7 % (0-2); EOSINOPHILS % (AUTO) 1.9 % (0-6); HEMATOCRIT 41.1 % (36.0-47.0); HEMOGLOBIN 14.2 g/dL (12.0-15.5); LYMPHOCYTES % (AUTO) 31.7 % (13-45); MEAN CORPUSCULAR HEMOGLOBIN 30.3 pg (27.0-33.4); MEAN CORPUSCULAR HGB CONC 34.6 g/dL (32.0-36.0); MEAN CORPUSCULAR VOLUME 87 fl (80-97); MONOCYTES % (AUTO) 4.8 % (3-13); PLATELET COUNT 326 10^3/uL (150-450); RED CELL DISTRIBUTION WIDTH 12.7 % (11.5-14.0); SEGMENTED NEUTROPHILS % (AUTO) 60.9 % (42-78); TOTAL CELLS COUNTED % (AUTO) 100 %; WHITE BLOOD COUNT 13.5 10^3/uL (4.0-10.5)
[2019-07-15 19:58] LABS: APPEARANCE,URINE SLIGHTLY-CLOUDY; BILIRUBIN,URINE NEGATIVE (NEGATIVE); COLOR,URINE YELLOW; GLUCOSE, URINE NEGATIVE (NEGATIVE); KETONES,URINE TRACE mg/dL (NEGATIVE); LEUKOCYTE ESTERASE,URINE NEGATIVE (NEGATIVE); NITRITE,URINE NEGATIVE (NEGATIVE); PROTEIN,URINE 30 mg/dL (NEGATIVE); URINE SPECIFIC GRAVITY 1.027
[2019-07-15 20:10] LABS: ALBUMIN 4.8 g/dL (3.5-5.0); ALKALINE PHOSPHATASE 70 U/L (38-126); ANION GAP 12 (5-19); ASPARTATE AMINO TRANSFERASE 18 U/L (14-36); BILIRUBIN,DIRECT 0.3 mg/dL (0.0-0.4); BILIRUBIN,TOTAL 0.4 mg/dL (0.2-1.3); BLOOD UREA NITROGEN 11 mg/dL (7-20); CARBON DIOXIDE 25 mmol/L (22-30); CHLORIDE 107 mmol/L (98-107); GLUCOSE 93 mg/dL (75-110); POTASSIUM 4.5 mmol/L (3.6-5.0); TOTAL PROTEIN 8.1 g/dL (6.3-8.2)
--- NOTE | 2019-07-15 21:12 | ER Document Report ---
ED GI/ - General Chief Complaint: Abdominal Cramping Stated Complaint: VOMITING,DIZZINESS,ABDOMINAL PAIN Time Seen by Provider: 07/15/19 19:06 Primary Care Provider: [facility] [Provider Group] - Follow up as needed [facility] [Provider Group] - Follow up as needed [facility] [Provider Group] - Follow up as needed [facility] [Provider Group] - Follow up as needed [facility] [Provider Group] - Follow up as needed Mode of Arrival: Ambulatory Information source: Patient Notes: 4-year-old female presented to ED for complaint of abdominal cramping nausea and emotional. She states she thought she was . Her hCG is negative. She states she did have a miscarriage about 6 weeks ago. She states she has been sexually active since then. She states she took test x3 of which was positive. She had her hCG here which was negative. She states she is 5 para 0. Denies any pain or burning discharge. TRAVEL OUTSIDE OF THE [place] IN LAST 30 DAYS: No - HPI Patient complains to provider of: Pelvic pain, Other - Feeling like she has when she was in the past. Onset: Last week Timing/Duration: Intermittent Quality of pain: Achy Severity at maximum: Moderate Severity in ED: Moderate Pain Level: 3 Location: Pelvis Vaginal bleeding (Compared to normal period): None LMP: Before last miscarriage a month ago Associated symptoms: Nausea, Other - Pelvic cramping and feeling hormonal Exacerbated by: Movement Relieved by: Denies Similar symptoms previously: Yes Recently seen / treated by doctor: No - Related Data Allergies/Adverse Reactions: No Known Allergies Allergy (Verified 08/16/17 23:49) Past Medical History - General Information source: Patient - Social History Smoking Status: Former Smoker Chew tobacco use (# tins/day): No Frequency of alcohol use: Occasional Drug Abuse: None Family History: Hypertension Patient has suicidal ideation: No Patient has homicidal ideation: No - Past Medical History Cardiac Medical History: Reports: Other - Irregular heartbeat at times Pulmonary Medical History: Reports: Hx Bronchitis Neurological Medical History: Reports: None Endocrine Medical History: Reports: None Renal/ Medical History: Reports: None Malignancy Medical History: Reports: None GI Medical History: Reports: None Musculoskeletal Medical History: Reports Hx Musculoskeletal Trauma Skin Medical History: Reports None Psychiatric Medical History: Reports: Hx Anxiety, Hx Bipolar Disorder, Hx Depression, Hx Obsessive Compulsive Disorder Traumatic Medical History: Reports: Hx Fractures - Left forearm Infectious Medical History: Reports: None Past Surgical History: Reports: Hx Orthopedic Surgery - Left forearm screws, Hx Tonsillectomy - Immunizations Hx Diphtheria, Pertussis, Tetanus Vaccination: Yes Review of Systems - Review of Systems Constitutional: No symptoms reported EENT: No symptoms reported Cardiovascular: No symptoms reported Respiratory: No symptoms reported Gastrointestinal: Abdominal pain - Cramping Genitourinary: No symptoms reported Female Genitourinary: Other - Pelvic cramping Musculoskeletal: No symptoms reported Skin: No symptoms reported Hematologic/Lymphatic: No symptoms reported Neurological/Psychological: No symptoms reported -: Yes All other systems reviewed and negative Physical Exam - Vital signs Vitals: Temp Pulse Resp BP Pulse Ox 97.4 F 92 18 134/93 H 97 07/15/19 19:10 07/15/19 19:10 07/15/19 19:10 07/15/19 19:10 07/15/19 19:10 Interpretation: Normal - General General appearance: Appears well, Alert - HEENT Head: Normocephalic, Atraumatic Eyes: Normal Pupils: PERRL - Respiratory Respiratory status: No respiratory distress Chest status: Nontender Breath sounds: Normal Chest palpation: Normal - Cardiovascular Rhythm: Regular Heart sounds: Normal auscultation Murmur: No - Abdominal Inspection: Normal Distension: No distension Bowel sounds: Normal Tenderness: Tender - Right pelvic area Organomegaly: No organomegaly - Back Back: Normal, Nontender - Extremities General upper extremity: Normal inspection, Nontender, Normal color, Normal ROM, Normal temperature General lower extremity: Normal inspection, Nontender, Normal color, Normal ROM, Normal temperature, Normal weight bearing. No: Tiarra's sign - Neurological Neuro grossly intact: Yes Cognition: Normal Orientation: AAOx4 Valencia Coma Scale Eye Opening: Spontaneous Vinod Coma Scale Verbal: Oriented Valencia Coma Scale Motor: Obeys Commands Vinod Coma Scale Total: 15 Speech: Normal Motor strength normal: LUE, RUE, LLE, RLE Sensory: Normal - Psychological Associated symptoms: Normal affect, Normal mood - Skin Skin Temperature: Warm Skin Moisture: Dry Skin Color: Normal Course - Re-evaluation Re-evalutation: 07/16/19 07:15 Discussed labs and ultrasound with patient. Patient did have an ovarian cyst. Patient was informed she would need to follow-up with a primary care and [employer]. Patient verbalized understanding agreement with treatment plan patient was discharged home. - Vital Signs Vital signs: Temp Pulse Resp BP Pulse Ox 98.2 F 82 20 114/75 100 07/15/19 23:54 07/15/19 23:54 07/15/19 23:54 07/15/19 23:54 07/15/19 23:54 - Laboratory Result Diagrams: 07/15/19 19:30 07/15/19 19:30 Laboratory results interpreted by me: 07/15/19 07/15/19 19:30 19:30 WBC 13.5 H Urine Protein 30 H Urine Ketones TRACE H Urine Urobilinogen 2.0 H - Diagnostic Test Radiology reviewed: Image reviewed, Reports reviewed Discharge - Discharge Clinical Impression: Right ovarian cyst Condition: Stable Disposition: HOME, SELF-CARE Additional Instructions: Ovarian Cyst Your examination shows the presence of an ovarian cyst. This is a ball of fluid attached to the ovary. Ovarian cysts in women of child-bearing age are usually innocent. However, the cyst may cause pain when it grows or bursts. An innocent ovarian cyst will usually go away by itself. When the cyst becomes painful, you should rest. Pain medication may be required. Some women find a hot water bottle soothing. The pain usually resolves within one or two days. After menopause, an ovarian cyst may mean a tumor, and requires more aggressive evaluation -- usually surgery is recommended to remove or biopsy the cyst. A very large cyst requires evaluation at any age. Most cysts (even the innocent ones) require follow-up examination. Call the doctor or return at any time if the pain increases significantly, if you become faint, or if you experience vaginal bleeding. Anxiety The physician feels that some of your health problems are being caused by anxiety. Anxiety affects your health in many ways. Anxiety alone can cause palpitations, sweats, chest pains, abdominal pains, shortness of breath, and headaches. It contributes to ulcer disease, high blood pressure, irritable bowel syndrome, and has been shown to cause flare-ups of many other diseases. Anxiety is not a simple disorder to treat. If the anxiety is due to recent life stresses, you may simply need time to "work through" the changes. If the anxiety is due to an underlying unhappiness with yourself or due to psychiatric disturbance, professional help will be needed. Your physician can refer you for further help if needed. Anti-anxiety medication is occasionally given if the stress is acute or if you are having trouble sleeping. Chronic or frequent use of these medications is not a good idea because the body becomes reliant on it, preventing you from dealing with life's normal stresses. Ibuprofen Ibuprofen is an excellent, safe drug for pain control. In addition, it has potent antiinflammatory effects which are beneficial, especially in the treatment of injuries, arthritis, or tendonitis. It's best to take ibuprofen with food. Persons with ulcer disease or allergy to aspirin should notify their physician of this before taking ibuprofen. Take the medication exactly as prescribed. Don't take additional doses unless instructed to do so by your doctor. If you develop wheezing, shortness of breath, hives, faintness, stomach pain, vomiting, or dark black stools, return for re-evaluation at once. FOLLOW-UP CARE: If you have been referred to a physician for follow-up care, call the physicians office for an appointment as you were instructed or within the next two days. If you experience worsening or a significant change in your symptoms, notify the physician immediately or return to the Emergency Department at any time for re-evaluation. Prescriptions: Ibuprofen [Motrin 800 mg Tablet] 800 mg PO Q8H PRN #30 tab PRN Reason: Hydroxyzine Pamoate [Vistaril 50 mg Capsule] 50 mg PO DAILY #14 capsule Forms: Elevated Blood Pressure, Return to Work Referrals: [facility] [Provider Group] - Follow up as needed [facility] [Provider Group] - Follow up as needed [facility] [Provider Group] - Follow up as needed [facility] [Provider Group] - Follow up as needed [facility] [Provider Group] - Follow up as needed
[2019-07-15] MEDS ORDERED: HYDROXYZINE PAMOATE 25 MG CAPSULE PO ONE (22:18)
--- NOTE | 2019-07-15 23:29 | RADIOLOGY REPORT (SQ) ---
EXAM DESCRIPTION: US PELVIS COMPLETED DATE/TME: 07/15/2019 21:07 CLINICAL HISTORY: 24 years, Female, pelvic pain emotional thought was COMPARISON: None. TECHNIQUE: Emergent pelvic ultrasound LIMITATIONS: None. FINDINGS: The uterus measures 6.9 x 4.4 x 5.4 cm. The myometrium is homogenous. The endometrium measures 13 mm in thickness. The right ovary measures 4.2 x 2.3 x 3.6 cm. The left ovary measures 2.9 x 2.7 x 1.9 cm. Normal flow to each ovary. 1.8 x 1.7 cm complex cyst of the right ovary. No free fluid IMPRESSION: Complex 1.8 cm right ovarian cyst. Recommend follow-up as per below. Recommendations for f/u of ovarian complex cysts (1): Endometrioma: <= 7 cm: US f/u 6-12 wks. If not surgically resected, US f/u annually. >7 cm: Consider MR w/IVC or surgical evaluation. If not surgically resected, US f/u annually. Dermoid: <= 5 cm: MR w/IV contrast. If not surgically resected, US f/u annually. >5 cm: Surgical evaluation. If not surgically resected, MR w/IVC; then US f/u annually Indeterminate cyst - multiple thin <=3 mm septations: Any size in any age: Consider surgical evaluation. Indeterminate cyst - non-hyperechoic nodule w/o blood flow: Any size in any age: Consider MR w/IVC or surgical evaluation. Indeterminate cyst - other, not classic for but suggestive of hemorrhagic cyst, endometrioma or dermoid: Pre-menopause: <= 7 cm: US f/u 6-12 weeks. If unchanged, continue f/u with US or consider MR w/IVC. If these do not confirm endometrioma or dermoid, consider surgical evaluation. >7 cm: Consider MR w/IVC or surgical evaluation. Post-menopause (>=1 year from last menstrual period): Any size: Consider surgical evaluation. Cyst worrisome for malignancy (thick, irregular >=3 mm septations or nodule with blood flow): Any size in any age: Consider surgical evaluation. (1) Recommendations based upon the 2010 SRU Consensus Conference Statement on the Management of Asymptomatic Ovarian and Other Adnexal Cysts Imaged at US: Radiology. 2009;256(3):941-66 copyright 2010 [email or web address]- All Rights Reserved
[2019-07-15] MEDS ORDERED: NORMAL SALINE 1000 ML 1,000 ML IV ONE (23:39)
[2019-07-15 23:55] VITALS: BP 114/75
== END 2019-07-16 00:01 | disposition home or self-care (01) ==
LOC: ER 18:33
DX: N83.201 Unspecified ovarian cyst, right side (principal); R10.9 Unspecified abdominal pain; R11.2 Nausea with vomiting, unspecified
CPT/HCPCS: 36415; 76856; 80053; 81001; 84702; 85025; 99284

== ENCOUNTER 2019-09-18 20:31 | Emergency (ER) | payer MEDICAID ==
--- NOTE | 2019-09-18 20:49 | ER Document Report ---
ED Medical Screen (RME) - General Chief Complaint: Vag Bleeding, +preg <12wks Stated Complaint: VAGINAL BLEEDING Time Seen by Provider: 09/18/19 20:45 Mode of Arrival: Ambulatory Information source: Patient Notes: Patient presents stating that she is anywhere from 12 to 16 weeks . Patient reports vaginal bleeding and pelvic cramping that started today. Patient states that she always has a vaginal discharge and she does have some dysuria symptoms. Patient is currently followed at the health department. I have greeted and performed a rapid initial assessment of this patient. A comprehensive ED assessment and evaluation of the patient, analysis of test results and completion of the medical decision making process will be conducted by additional ED providers. TRAVEL OUTSIDE OF THE [place] IN LAST 30 DAYS: No - Related Data Allergies/Adverse Reactions: No Known Allergies Allergy (Verified 08/16/17 23:49) Past Medical History Pulmonary Medical History: Reports: Hx Bronchitis Renal/ Medical History: Denies: Hx Peritoneal Dialysis Musculoskeltal Medical History: Reports Hx Musculoskeletal Trauma Psychiatric Medical History: Reports: Hx Anxiety, Hx Bipolar Disorder, Hx Depression, Hx Obsessive Compulsive Disorder Traumatic Medical History: Reports: Hx Fractures - Left forearm Past Surgical History: Reports: Hx Orthopedic Surgery - Left forearm screws, Hx Tonsillectomy - Immunizations Hx Diphtheria, Pertussis, Tetanus Vaccination: Yes Physical Exam - Vital signs Vitals: Temp Pulse Resp BP Pulse Ox 97.9 F 108 H 16 126/76 H 98 09/18/19 20:35 09/18/19 20:35 09/18/19 20:35 09/18/19 20:35 09/18/19 20:35 - Abdominal Tenderness: Tender - Lower pelvic Course - Vital Signs Vital signs: Temp Pulse Resp BP Pulse Ox 97.9 F 108 H 16 126/76 H 98 09/18/19 20:35 09/18/19 20:35 09/18/19 20:35 09/18/19 20:35 09/18/19 20:35
[2019-09-18 21:13] LABS: ABSOLUTE BASOPHILS # (AUTO) 0.1 10^3/uL (0.0-0.2); ABSOLUTE EOSINOPHILS # (AUTO) 0.2 10^3/uL (0.0-0.6); ABSOLUTE LYMPHOCYTES (AUTO) 2.2 10^3/uL (0.5-4.7); ABSOLUTE MONOCYTES (AUTO) 0.5 10^3/uL (0.1-1.4); ABSOLUTE NEUT (AUTO) 7.9 10^3/uL (1.7-8.2); BASOPHILS % (AUTO) 0.6 % (0-2); HEMATOCRIT 36.1 % (36.0-47.0); HEMOGLOBIN 12.6 g/dL (12.0-15.5); LYMPHOCYTES % (AUTO) 20.4 % (13-45); MEAN CORPUSCULAR HEMOGLOBIN 30.8 pg (27.0-33.4); MEAN CORPUSCULAR HGB CONC 34.9 g/dL (32.0-36.0); MEAN CORPUSCULAR VOLUME 88 fl (80-97); MONOCYTES % (AUTO) 4.8 % (3-13); PLATELET COUNT 278 10^3/uL (150-450); RED CELL DISTRIBUTION WIDTH 12.8 % (11.5-14.0); SEGMENTED NEUTROPHILS % (AUTO) 72.2 % (42-78); TOTAL CELLS COUNTED % (AUTO) 100 %; WHITE BLOOD COUNT 10.9 10^3/uL (4.0-10.5)
--- NOTE | 2019-09-18 22:11 | RADIOLOGY REPORT (SQ) ---
EXAM DESCRIPTION: US LESS THAN 14 WEEKS COMPLETED DATE/TME: 09/18/2019 20:47 CLINICAL HISTORY: 24 years, Female, pelvic pain, +vag bleeding COMPARISON: 07/15/2019 ultrasound TECHNIQUE: Emergent first trimester ultrasound LIMITATIONS: None. FINDINGS: The uterus measures 9.3 x 6.8 x 10.7 cm. There is an intrauterine gestational sac with pole. Heart tones were obtained at 157 bpm. Assessment of the placenta and amniotic fluid volume is limited due to early gestational age. Cervical length 2.7 cm. The maternal ovaries are not well seen, likely due to their position in the pelvis. Current ultrasound age is 12 weeks 1 day. No free fluid IMPRESSION: Single live IUP as above. Continued nonemergent follow-up recommended copyright 2010 [employer]- All Rights Reserved
[2019-09-18 22:16] LABS: APPEARANCE,URINE SLIGHTLY-CLOUDY; BILIRUBIN,URINE NEGATIVE (NEGATIVE); COLOR,URINE YELLOW; GLUCOSE, URINE NEGATIVE (NEGATIVE); KETONES,URINE NEGATIVE (NEGATIVE); LEUKOCYTE ESTERASE,URINE NEGATIVE (NEGATIVE); NITRITE,URINE NEGATIVE (NEGATIVE); PROTEIN,URINE NEGATIVE (NEGATIVE); URINE SPECIFIC GRAVITY 1.013; UROBILINOGEN,URINE NEGATIVE mg/dL (<2.0)
[2019-09-18 22:45] LABS: CHLAM PCR NOT DETECTED (NOT DETECT)
[2019-09-18 22:55] LABS: BACTERIA (WET MOUNT) 3+ BACTERIA SEEN; EPITHELIALS (WET MOUNT) 3+ EPITHELIALS SEEN; T.VAGINALIS (WET MOUNT) NO TRICHOMONAS SEEN; WBCS (WET MOUNT) 2+ WBCS SEEN; YEAST (WET MOUNT) YEAST SEEN
--- NOTE | 2019-09-18 22:55 | ER Document Report ---
ED General - General Chief Complaint: Vaginal Bleeding Stated Complaint: VAGINAL BLEEDING Time Seen by Provider: 09/18/19 20:45 Mode of Arrival: Ambulatory Information source: Patient Notes: This 24-year-old female presents to the emergency department with complaints of possible . She also complains of vaginal bleeding when she wipes some abdominal cramping and vaginal discharge with urinary frequency for the past week. Reports her last menstrual period was in April. She reports she had a miscarriage in May. G6, P0. She reports she also has had a little bit of diarrhea but that is probably because she started drinking coffee again. Denies fever vomiting. TRAVEL OUTSIDE OF THE [place] IN LAST 30 DAYS: No - HPI Onset: Other Onset/Duration: Persistent Quality of pain: Cramping Associated symptoms: Vomiting Exacerbated by: Denies Relieved by: Denies Similar symptoms previously: No Recently seen / treated by doctor: No - Related Data Allergies/Adverse Reactions: No Known Allergies Allergy (Verified 08/16/17 23:49) Home Medications: zantac, tylenol, tums Past Medical History - General Information source: Patient Last Menstrual Period: April - Social History Smoking Status: Former Smoker Chew tobacco use (# tins/day): No Frequency of alcohol use: Rare Drug Abuse: None Family History: Hypertension Patient has suicidal ideation: No Patient has homicidal ideation: No Pulmonary Medical History: Reports: Hx Bronchitis Neurological Medical History: Reports: Hx Migraine Renal/ Medical History: Denies: Hx Peritoneal Dialysis Musculoskeletal Medical History: Reports Hx Musculoskeletal Trauma Psychiatric Medical History: Reports: Hx Anxiety, Hx Bipolar Disorder, Hx Depression, Hx Obsessive Compulsive Disorder Traumatic Medical History: Reports: Hx Fractures - Left forearm Past Surgical History: Reports: Hx Orthopedic Surgery - Left forearm screws, Hx Tonsillectomy - Immunizations Hx Diphtheria, Pertussis, Tetanus Vaccination: Yes Review of Systems - Review of Systems Notes: Review HPI for review of systems., All other systems negative Physical Exam - Vital signs Vitals: Temp Pulse Resp BP Pulse Ox 97.9 F 108 H 16 126/76 H 98 09/18/19 20:35 09/18/19 20:35 09/18/19 20:35 09/18/19 20:35 09/18/19 20:35 - Notes Notes: PHYSICAL EXAMINATION: GENERAL: Well-appearing and in no acute distress HEAD: Atraumatic, normocephalic. EYES: Pupils equal round and reactive to light, extraocular movements intact, sclera anicteric, conjunctiva are normal. ENT: nares patent, oropharynx clear without exudates. Moist mucous membranes. NECK: Normal range of motion, supple without lymphadenopathy LUNGS: CTAB and equal. No wheezes rales or rhonchi. HEART: Regular rate and rhythm without murmurs ABDOMEN: Soft, no tenderness with palpation. No guarding, no rebound BACK: C/O Low back soreness, denies CVA tenderness EXTREMITIES: Normal range of motion, no pitting edema. No cyanosis. NEUROLOGICAL: Cranial nerves grossly intact. Normal sensory/motor exams. PSYCH: Normal mood, normal affect. SKIN: Warm, Dry, normal turgor, no rashes or lesions noted - Genitourinary External exam: Normal Speculum exam: Vaginal discharge Vaginal bleeding: None Bimanuel exam: Normal Course - Re-evaluation Re-evalutation: 09/18/19 22:52 This 24-year-old female G6, P0 presents emergency department complaints of abdominal cramping vaginal discharge vaginal bleeding when she wipes and dysuria. She denies fever reports some diarrhea but that is from drinking coffee. Denies STD exposure. Reports she is been with the same person for 2 years and he was just checked. Patient was instructed on plan of care, STD collection. She reports she does not think she has a STD so she would like to leave before results and can be called. 09/19/19 00:57 Patient positive for yeast infection. Patient instructed on treatment. She was also instructed on the importance of follow-up with [facility] or the health department within the week for care. She verbalized understanding to all instructions. STD cultures negative. Obstetrics Ultrasound 09/18/19 20:47 IMPRESSION: Single live IUP as above. Continued nonemergent follow-up recommended copyright 2010 [employer]- All Rights Reserved Laboratory 09/18/19 09/18/19 09/18/19 20:55 20:55 20:55 WBC 10.9 H RBC 4.10 Hgb 12.6 Hct 36.1 MCV 88 MCH 30.8 MCHC 34.9 RDW 12.8 Plt Count 278 Lymph % (Auto) 20.4 [place] % (Auto) 4.8 Eos % (Auto) 2.0 Baso % (Auto) 0.6 Absolute Neuts (auto) 7.9 Absolute Lymphs (auto) 2.2 Absolute Monos (auto) 0.5 Absolute Eos (auto) 0.2 Absolute Basos (auto) 0.1 Seg Neutrophils % 72.2 Beta HCG, Quant 08711.00 H Total Beta HCG POSITIVE Urine Color Urine Appearance Urine pH Ur Specific [place] Urine Protein Urine Glucose (UA) Urine Ketones Urine Blood Urine Nitrite Urine Bilirubin Urine Urobilinogen Ur Leukocyte Esterase Urine WBC (Auto) Squamous Epi Cells Auto Urine Mucus (Auto) Urine Ascorbic Acid Epi Cells (Wet Prep) Bacteria (Wet Prep) Trichomonas (Wet Prep) Vaginal WBC Vaginal Yeast Chlamydia DNA (PCR) N.gonorrhoeae DNA (PCR) Blood Type A POSITIVE Rhogam Indicated RHOGAM NOT INDICATED 09/18/19 09/18/19 09/18/19 20:55 21:50 22:42 WBC RBC Hgb Hct MCV MCH MCHC RDW Plt Count Lymph % (Auto) [place] % (Auto) Eos % (Auto) Baso % (Auto) Absolute Neuts (auto) Absolute Lymphs (auto) Absolute Monos (auto) Absolute Eos (auto) Absolute Basos (auto) Seg Neutrophils % Beta HCG, Quant Total Beta HCG Urine Color YELLOW Urine Appearance SLIGHTLY-CLOUDY Urine pH 6.0 Ur Specific [place] 1.013 Urine Protein NEGATIVE Urine Glucose (UA) NEGATIVE Urine Ketones NEGATIVE Urine Blood NEGATIVE Urine Nitrite NEGATIVE Urine Bilirubin NEGATIVE Urine Urobilinogen NEGATIVE Ur Leukocyte Esterase NEGATIVE Urine WBC (Auto) 1 Squamous Epi Cells Auto 5 Urine Mucus (Auto) RARE Urine Ascorbic Acid NEGATIVE Epi Cells (Wet Prep) 3+ EPITHELIALS SEEN Bacteria (Wet Prep) 3+ BACTERIA SEEN Trichomonas (Wet Prep) NO TRICHOMONAS SEEN Vaginal WBC 2+ WBCS SEEN Vaginal Yeast YEAST SEEN Chlamydia DNA (PCR) NOT DETECTED N.gonorrhoeae DNA (PCR) NOT DETECTED Blood Type Rhogam Indicated - Vital Signs Vital signs: Temp Pulse Resp BP Pulse Ox 96 F L 93 17 114/74 99 09/19/19 00:35 09/19/19 00:35 09/19/19 00:35 09/19/19 00:35 09/19/19 00:35 - Laboratory Result Diagrams: 09/18/19 20:55 Laboratory results interpreted by me: 09/18/19 09/18/19 20:55 20:55 WBC 10.9 H Beta HCG, Quant 56661.00 H Procedures - Pelvic Exam Pelvic exam Time completed: 22:52 Cultures obtained: Yes Wet prep obtained: Yes Herpes culture obtained: No POC sent to lab: No Foreign body removed: No Bimanual exam performed: Yes Witnessed by: donald dickey Discharge - Discharge Clinical Impression: Abdominal cramping, Vaginal yeast infection Qualifiers: Weeks of gestation: 12 weeks Qualified Code(s): Z3A.12 - 12 weeks gestation of Condition: Stable Disposition: HOME, SELF-CARE Instructions: Abdominal Pain ([facility]), Bleeding During Early ([facility]), Ob- [facility], [facility] Additional Instructions: *You have been evaluated for abdominal pain, vaginal bleeding, , vaginal yeast infection Your ultrasound showed that you are 12 weeks 1 day with a single intrauterine with a heart rate of 157 *Your STD cultures are pending. You will be contacted should you need further treatment. *Follow up with a [facility] or the health department within 1 week *Return to ED for worsening condition, changes, needs, heavy vaginal bleeding increased abdominal pain, concerns Prescriptions: Miconazole Nitrate [Miconazole 7] 100 mg VG QHS #1 supp.vag
[2019-09-19 00:38] VITALS: BP 114/74
== END 2019-09-19 00:38 | disposition home or self-care (01) ==
LOC: ER 20:31
DX: O23.591 Infection of other part of genital tract in pregnancy, first trimester (principal); B96.89 Other specified bacterial agents as the cause of diseases classified elsewhere; O21.9 Vomiting of pregnancy, unspecified; O20.9 Hemorrhage in early pregnancy, unspecified; O26.891 Other specified pregnancy related conditions, first trimester; R10.9 Unspecified abdominal pain; R35.0 Frequency of micturition; R19.7 Diarrhea, unspecified; R30.0 Dysuria; Z3A.12 12 weeks gestation of pregnancy; Z79.899 Other long term (current) drug therapy; Z87.891 Personal history of nicotine dependence; Z87.59 Personal history of other complications of pregnancy, childbirth and the puerperium
CPT/HCPCS: 36415; 76801; 81001; 84702; 85025; 86900; 86901; 87070; 87205; 87210; 87491; 87591; 99284

== ENCOUNTER 2019-09-30 17:29 | Emergency (ER) | payer MEDICAID ==
[2019-09-30 17:34] VITALS: BP 126/82
--- NOTE | 2019-09-30 18:09 | ER Document Report ---
ED Medical Screen (RME) - General Chief Complaint: Anxiety Stated Complaint: ANXIETY Time Seen by Provider: 09/30/19 18:07 Information source: Patient Cannot obtain history due to: Other - This is a 24-year-old female presented with anxiety followed by abdominal pain which she has had 3 times today she is also 17 weeks high risk because she has had 3 miscarriages which were due to stress. She is not had any spotting or bleeding but she does have belly pain and she is . TRAVEL OUTSIDE OF THE [place] IN LAST 30 DAYS: No - Related Data Allergies/Adverse Reactions: No Known Allergies Allergy (Verified 09/30/19 18:02) Past Medical History Pulmonary Medical History: Reports: Hx Bronchitis Neurological Medical History: Reports: Hx Migraine Renal/ Medical History: Denies: Hx Peritoneal Dialysis Musculoskeltal Medical History: Reports Hx Musculoskeletal Trauma Psychiatric Medical History: Reports: Hx Anxiety, Hx Bipolar Disorder, Hx Depression, Hx Obsessive Compulsive Disorder Traumatic Medical History: Reports: Hx Fractures - Left forearm Past Surgical History: Reports: Hx Orthopedic Surgery - Left forearm screws, Hx Tonsillectomy - Immunizations Hx Diphtheria, Pertussis, Tetanus Vaccination: Yes Physical Exam - Vital signs Vitals: Temp Pulse Resp BP Pulse Ox 98.0 F 108 H 16 126/82 H 100 09/30/19 17:32 09/30/19 17:32 09/30/19 17:32 09/30/19 17:32 09/30/19 17:32 - HEENT Head: Normocephalic, Atraumatic Eyes: Normal Pupils: PERRL Course - Vital Signs Vital signs: Temp Pulse Resp BP Pulse Ox 98.0 F 108 H 16 126/82 H 100 09/30/19 17:32 09/30/19 17:32 09/30/19 17:32 09/30/19 17:32 09/30/19 17:32
[2019-09-30 18:36] LABS: ABSOLUTE BASOPHILS # (AUTO) 0.1 10^3/uL (0.0-0.2); ABSOLUTE EOSINOPHILS # (AUTO) 0.1 10^3/uL (0.0-0.6); ABSOLUTE MONOCYTES (AUTO) 0.5 10^3/uL (0.1-1.4); BASOPHILS % (AUTO) 0.6 % (0-2); EOSINOPHILS % (AUTO) 0.9 % (0-6); HEMATOCRIT 39.5 % (36.0-47.0); HEMOGLOBIN 13.8 g/dL (12.0-15.5); LYMPHOCYTES % (AUTO) 14.9 % (13-45); MEAN CORPUSCULAR HEMOGLOBIN 30.6 pg (27.0-33.4); MEAN CORPUSCULAR HGB CONC 35.1 g/dL (32.0-36.0); MEAN CORPUSCULAR VOLUME 87 fl (80-97); MONOCYTES % (AUTO) 3.6 % (3-13); PLATELET COUNT 255 10^3/uL (150-450); RED BLOOD COUNT 4.52 10^6/uL (3.72-5.28); RED CELL DISTRIBUTION WIDTH 12.8 % (11.5-14.0); TOTAL CELLS COUNTED % (AUTO) 100 %; WHITE BLOOD COUNT 13.7 10^3/uL (4.0-10.5)
--- NOTE | 2019-09-30 18:37 | ER Document Report ---
ED General - General Chief Complaint: Anxiety Stated Complaint: ANXIETY Time Seen by Provider: 09/30/19 18:07 Mode of Arrival: Ambulatory Information source: Patient Notes: 24-year-old female arrives with chief complaint of having suprapubic pain tachycardia and panic attacks. She has history of thyroid disease that was last checked in 2017 with her last . She is a G5, P0 and last aborted at 14 weeks. She is now 13 weeks by ultrasound with heart rate 162 in a breech position. She has been treated for group B strep with amoxicillin as per health department protocol. She has not seen a regular OB doctor as yet. Patient reports she does have a history of anxiety attacks and today has been having exceptional attacks but worse over the last 1 week. She denies any illegal drugs or phuq-[id number] red bull drinks or similar substances. She denies any Sudafed or other medications similar. She denies any pulmonary embolisms or hemoptysis diarrhea constipation trauma vaginal discharge back pain chest pain dyspnea nuchal rigidity fever chills rhinorrhea cough or cold symptoms cephalgia. TRAVEL OUTSIDE OF THE [place] IN LAST 30 DAYS: No - Related Data Allergies/Adverse Reactions: No Known Allergies Allergy (Verified 09/30/19 18:02) Past Medical History - General Information source: Patient - Social History Smoking Status: Never Smoker Cigarette use (# per day): No Chew tobacco use (# tins/day): No Smoking Education Provided: No Frequency of alcohol use: None Drug Abuse: None Lives with: Family Family History: Reviewed & Not Pertinent, Hypertension Patient has suicidal ideation: No Patient has homicidal ideation: No - Past Medical History Cardiac Medical History: Reports: Other - Rapid heart rate Pulmonary Medical History: Reports: Hx Bronchitis Neurological Medical History: Reports: Hx Migraine Renal/ Medical History: Denies: Hx Peritoneal Dialysis Musculoskeletal Medical History: Reports Hx Musculoskeletal Trauma Psychiatric Medical History: Reports: Hx Anxiety, Hx Bipolar Disorder, Hx Depression, Hx Obsessive Compulsive Disorder Traumatic Medical History: Reports: Hx Fractures - Left forearm Past Surgical History: Reports: Hx Orthopedic Surgery - Left forearm screws, Hx Tonsillectomy - Immunizations Hx Diphtheria, Pertussis, Tetanus Vaccination: Yes Review of Systems - Review of Systems Constitutional: See HPI, Malaise EENT: No symptoms reported Cardiovascular: No symptoms reported Respiratory: No symptoms reported Gastrointestinal: See HPI, Abdominal pain Genitourinary: See HPI, Dysuria Female Genitourinary: No symptoms reported Musculoskeletal: No symptoms reported Skin: No symptoms reported Hematologic/Lymphatic: No symptoms reported Neurological/Psychological: No symptoms reported Physical Exam - Vital signs Vitals: Temp Pulse Resp BP Pulse Ox 98.0 F 108 H 16 126/82 H 100 09/30/19 17:32 09/30/19 17:32 09/30/19 17:32 09/30/19 17:32 09/30/19 17:32 Interpretation: Normal, Tachycardic - General General appearance: Alert - HEENT Head: Normocephalic Eyes: Normal Conjunctiva: Normal Cornea: Normal Extraocular movements intact: Yes Eyelashes: Normal Pupils: PERRL Sinus: Normal Nasal: Normal Mouth/Lips: Normal Mucous membranes: Normal Pharynx: Normal Neck: Thyromegally - Respiratory Respiratory status: No respiratory distress Chest status: Nontender Breath sounds: Normal Chest palpation: Normal - Cardiovascular Rhythm: Tachycardia Heart sounds: Normal auscultation Murmur: No Friction rub: No Marta's crunch: No - Abdominal Inspection: Normal Distension: Distended Bowel sounds: Normal Tenderness: Tender - Suprapubic tenderness Organomegaly: No organomegaly - Back Back: Normal - Extremities General upper extremity: Normal inspection General lower extremity: Normal inspection - Neurological Neuro grossly intact: Yes Cognition: Normal Orientation: AAOx4 [place] Coma Scale Eye Opening: Spontaneous [place] Coma Scale Verbal: Oriented Vinod Coma Scale Motor: Obeys Commands [place] Coma Scale Total: 15 Speech: Normal Cranial nerves: Normal Cerebellar coordination: Normal Motor strength normal: LUE, RUE, LLE, RLE - Psychological Associated symptoms: Anxious - Skin Skin Temperature: Warm Skin Moisture: Dry Course - Vital Signs Vital signs: Temp Pulse Resp BP Pulse Ox 98.0 F 108 H 16 126/82 H 100 09/30/19 17:32 09/30/19 17:32 09/30/19 17:32 09/30/19 17:32 09/30/19 17:32 - Laboratory Result Diagrams: 09/30/19 18:20 09/30/19 18:20 Laboratory results interpreted by me: 09/30/19 09/30/19 09/30/19 18:20 18:20 18:20 WBC 13.7 H Absolute Neuts (auto) 11.0 H Seg Neutrophils % 80.0 H Sodium 136.9 L Creatinine 0.39 L Beta HCG, Quant 19031.00 H Ur Leukocyte Esterase TRACE H - Diagnostic Test Radiology reviewed: Reports reviewed Radiology results interpreted by me: 09/30/19 19:39 13-week breech IUP at 162 bpm Critical Care Note - Critical Care Note Total time excluding time spent on procedures (mins): 90 Comments: I advised patient of these medical findings on labs and ultrasound reports. She is aware of tachycardia and we will obtain a TSH on her and refer her to Dr. Monge for her tachycardia and to OB doctor Dr. Matilde Wong and also to aggregate conveyor operator for thyroidomegaly. I spoke with both Dr. Wong and with Dr. Monge about her case and they will see this patient in their office. I advised her to call for appointment tomorrow Discharge - Discharge Clinical Impression: Panic attacks, Tachycardia, Thyromegaly Qualifiers: Weeks of gestation: 13 weeks Qualified Code(s): Z3A.13 - 13 weeks gestation of Condition: Good Disposition: HOME, SELF-CARE Instructions: Anxiety ([facility]) Additional Instructions: I spoke with both Dr. Wong and with Dr. Monge about your case and they will see you in their office. I advise you to call for appointment tomorrow. Also take your medications for your heart rate. This will help control anxiety as well as tachycardia. You may also need to see an aggregate conveyor operator but Dr. Wong and Dr. Saleem Quijano see you initially. Return to ER if symptoms persist and off work as directed Prescriptions: Propranolol HCl [Inderal 20 mg Tablet] 20 mg PO Q12 #60 tab Forms: Return to Work
[2019-09-30 18:42] LABS: APPEARANCE,URINE SLIGHTLY-CLOUDY; BILIRUBIN,URINE NEGATIVE (NEGATIVE); COLOR,URINE YELLOW; GLUCOSE, URINE NEGATIVE (NEGATIVE); KETONES,URINE NEGATIVE (NEGATIVE); LEUKOCYTE ESTERASE,URINE TRACE (NEGATIVE); NITRITE,URINE NEGATIVE (NEGATIVE); PROTEIN,URINE NEGATIVE (NEGATIVE); URINE SPECIFIC GRAVITY 1.018; UROBILINOGEN,URINE NEGATIVE mg/dL (<2.0)
[2019-09-30 18:54] LABS: ALBUMIN 4.3 g/dL (3.5-5.0); ALKALINE PHOSPHATASE 85 U/L (38-126); ANION GAP 11 (5-19); ASPARTATE AMINO TRANSFERASE 18 U/L (14-36); BILIRUBIN,DIRECT 0.3 mg/dL (0.0-0.4); BILIRUBIN,TOTAL 0.3 mg/dL (0.2-1.3); BLOOD UREA NITROGEN 7 mg/dL (7-20); CALCIUM 9.8 mg/dL (8.4-10.2); CARBON DIOXIDE 23 mmol/L (22-30); CHLORIDE 103 mmol/L (98-107); GLUCOSE 104 mg/dL (75-110); POTASSIUM 4.2 mmol/L (3.6-5.0); TOTAL PROTEIN 7.6 g/dL (6.3-8.2)
--- NOTE | 2019-09-30 18:58 | RADIOLOGY REPORT (SQ) ---
EXAM DESCRIPTION: U/S OB LIMITED COMPLETED DATE/TIME: 09/30/2019 6:46 pm REASON FOR STUDY: PAIN COMPARISON: None. TECHNIQUE: Limited transabdominal grayscale ultrasound for evaluation of specific requested obstetri jacob parameters. LIMITATIONS: None. FINDINGS: CERVICAL LENGTH: 3 cm Closed. MAGDALENA: adequate amount . FHR: 162 beats per minute. PRESENTATION: Breech PLACENTA: Posterior ANATOMY: Not assessed OTHER: No other significant findings. IMPRESSION: LIMITED OBSTETRICAL ULTRASOUND WITH MEASURED PARAMETERS DELINEATED ABOVE. Trimester of : Second trimester - 13 weeks 1 day to 27 weeks 6 days. TECHNICAL DOCUMENTATION: JOB ID: [id number] 2010 [employer]- All Rights Reserved Reading location - IP/workstation name: [email or web address]
[2019-09-30] MEDS ORDERED: LORAZEPAM INJ 2 MG/1 ML VIAL IM ONE (19:16)
[2019-09-30] MEDS ORDERED: NITROFURANTOIN MONOHYD/M-CRYST 100 MG CAPSULE PO ONE (19:16)
[2019-09-30] MEDS ORDERED: PROPRANOLOL HCL 10 MG TABLET PO ONE (19:35)
== END 2019-09-30 20:43 | disposition home or self-care (01) ==
LOC: ER 17:29
DX: O26.91 Pregnancy related conditions, unspecified, first trimester (principal); F41.0 Panic disorder [episodic paroxysmal anxiety]; R00.0 Tachycardia, unspecified; E01.0 Iodine-deficiency related diffuse (endemic) goiter; Z3A.13 13 weeks gestation of pregnancy
CPT/HCPCS: 99291; 99292; 96372; 86900; 86901; 36415; 84702; 84443; 85025; 80053; 81001; 76815; J2060; J3490 ×2; J8499

== ENCOUNTER 2019-11-03 09:39 | Emergency (ER) | payer MEDICAID ==
[2019-11-03 10:39] LABS: APPEARANCE,URINE CLEAR; BILIRUBIN,URINE NEGATIVE (NEGATIVE); COLOR,URINE YELLOW; GLUCOSE, URINE NEGATIVE (NEGATIVE); KETONES,URINE NEGATIVE (NEGATIVE); LEUKOCYTE ESTERASE,URINE NEGATIVE (NEGATIVE); NITRITE,URINE NEGATIVE (NEGATIVE); PROTEIN,URINE NEGATIVE (NEGATIVE); URINE SPECIFIC GRAVITY 1.014; UROBILINOGEN,URINE NEGATIVE mg/dL (<2.0)
--- NOTE | 2019-11-03 12:11 | RADIOLOGY REPORT (SQ) ---
EXAM DESCRIPTION: U/S OB LIMITED IMAGES COMPLETED DATE/TIME: 11/03/2019 11:55 am REASON FOR STUDY: trauma fall/abd pain/swelling COMPARISON: 09/30/2019 TECHNIQUE: Limited transabdominal grayscale ultrasound for evaluation of specific requested obstetri jacob parameters. LIMITATIONS: None. FINDINGS: CERVICAL LENGTH: 4.4 cm. Closed. Ovoid isoechoic thickening in the cervix, nonspecific. Unclear if this was present previously. Possibly artifact or fibroid. MAGDALENA: 8 x 3.1 cm largest vertical pocket. FHR: 147 beats per minute. PLACENTA: Posterior placenta lies approximately 1 cm from the cervix, marginal. ANATOMY: Not assessed OTHER: Estimated weight 298 +/- 44 g. additional scanning was performed in the left upper quadr ant abdomen at a site of reported lump/ tenderness. No regional pathology here. IMPRESSION: 1. Living IUP as above. 2. Posterior placenta, marginal. No evidence of abruption. Trimester of : Second trimester - 13 weeks 1 day to 27 weeks 6 days. TECHNICAL DOCUMENTATION: JOB ID: [id number] 2010 [employer]- All Rights Reserved Reading location - IP/workstation name: [email or web address]
--- NOTE | 2019-11-03 12:36 | ER Document Report ---
Entered by DULCE KURTZ SCRIBE 11/03/19 1044 Acting as scribe for:FARHAN RICHTER MD ED General - General Chief Complaint: Fall Injury Stated Complaint: FALL/ABDOMINAL PAIN18 WEEKS PREG Time Seen by Provider: 11/03/19 10:21 Primary Care Provider: DAVID VILLA MD [Primary Care Provider] - Follow up as needed Information source: Patient Notes: This 24 year old female patient presents to the emergency department today with complaints of abdominal pain. Patient states she is x18 weeks , [id number]. Patient states she fell on her abdomen x5 days ago on a wire dog cage, and for the past x2 days it feels like there is a knot in the left upper abdomen and it has caused pain. Patient states the pain is exacerbated by getting up from a laying position and moving around. 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 Patient denies any vaginal bleeding or discharge. TRAVEL OUTSIDE OF THE [place] IN LAST 30 DAYS: No - Related Data Allergies/Adverse Reactions: No Known Allergies Allergy (Verified 11/03/19 10:29) Home Medications: tylenol prn Past Medical History - General Information source: Patient - Social History Smoking Status: Former Smoker Cigarette use (# per day): No Chew tobacco use (# tins/day): No Frequency of alcohol use: None Drug Abuse: None Family History: Reviewed & Not Pertinent, Hypertension Patient has suicidal ideation: No Patient has homicidal ideation: No Pulmonary Medical History: Reports: Hx Bronchitis Neurological Medical History: Reports: Hx Migraine Renal/ Medical History: Reports: Other - x5 Miscarriages. Musculoskeletal Medical History: Reports Hx Musculoskeletal Trauma Psychiatric Medical History: Reports: Hx Anxiety, Hx Bipolar Disorder, Hx Depression, Hx Obsessive Compulsive Disorder Traumatic Medical History: Reports: Hx Fractures - Left forearm Past Surgical History: Reports: Hx Orthopedic Surgery - Left forearm screws, Hx Tonsillectomy - Immunizations Hx Diphtheria, Pertussis, Tetanus Vaccination: Yes Review of Systems - Review of Systems Constitutional: No symptoms reported EENT: No symptoms reported Cardiovascular: No symptoms reported Respiratory: No symptoms reported Gastrointestinal: See HPI, Abdominal pain Genitourinary: No symptoms reported Female Genitourinary: See HPI, . denies: Vaginal discharge, Vaginal bleeding Musculoskeletal: No symptoms reported Skin: No symptoms reported Hematologic/Lymphatic: No symptoms reported Neurological/Psychological: No symptoms reported -: Yes All other systems reviewed and negative Physical Exam - Vital signs Vitals: Temp Pulse Resp BP Pulse Ox 97.8 F 103 H 18 129/70 H 98 11/03/19 09:41 11/03/19 09:41 11/03/19 09:41 11/03/19 09:41 11/03/19 09:41 - General General appearance: Appears well, Alert - HEENT Head: Normocephalic, Atraumatic Eyes: Normal Pupils: PERRL - Respiratory Respiratory status: No respiratory distress Chest status: Nontender Breath sounds: Normal Chest palpation: Normal - Cardiovascular Rhythm: Regular Heart sounds: Normal auscultation Murmur: No - Abdominal Inspection: Gravid female, Other - No ecchymosis. Distension: No distension Bowel sounds: Normal Tenderness: Nontender - Extremities General upper extremity: Normal inspection. No: Edema General lower extremity: Normal inspection. No: Edema - Neurological Neuro grossly intact: Yes Cognition: Normal Orientation: AAOx4 Speech: Normal - Psychological Associated symptoms: Normal affect, Normal mood - Skin Skin Temperature: Warm Skin Moisture: Dry Skin Color: Normal Course - Re-evaluation Re-evalutation: 11/03/19 12:32 Patient resting comfortably not showing any signs of distress. - Vital Signs Vital signs: Temp Pulse Resp BP Pulse Ox 97.8 F 103 H 18 129/70 H 98 11/03/19 09:41 11/03/19 09:41 11/03/19 09:41 11/03/19 09:41 11/03/19 09:41 11/03/19 12:33 Vital signs stable - Laboratory Laboratory results interpreted by me: 11/03/19 10:15 Urine HCG, Qual POSITIVE H - Diagnostic Test Radiology reviewed: Image reviewed, Reports reviewed Radiology results interpreted by me: 11/03/19 12:33 Ultrasound with Doppler OB pelvis. Shows intrauterine live and heartbeat of fetus 147. Placenta is 1 cm above the cervix. No placental abruption noted. Discharge - Discharge Clinical Impression: Abdominal pain, Second trimester Condition: Stable Disposition: HOME, SELF-CARE Additional Instructions: Abdominal Pain There are many causes of abdominal pain. Pain can mean a serious problem requiring surgery (such as appendicitis). It can also be an innocent problem that goes away on its own (such as a viral infection). Often, time must pass to determine the cause of pain. The physician does not feel that hospitalization is necessary, at present. Things may change within the next 24 hours. Call the doctor or come back for re- examination if any problems occur, such as: (1) Pain that becomes more severe, steady, or becomes concentrated in one specific area. Also, pain that is more severe with movement or coughing. (2) Vomiting that persists or becomes more frequent. (3) Blood in the vomitus, urine, or bowel movements. Blood in the stool may have a tarry or black appearance. (4) Shaking chills or fever greater than 100 degrees F. (5) The abdomen becomes more distended or swollen. (6) Bowel movements cease. (7) Failure to improve as expected. Inasmuch you are not we recommend you only take Tylenol if needed for pain currently you have not had pain to a level as you required any medication and I expect that you will continue to improve. Your pain is understood based on having fallen striking a fence and there is been no consequence to your at this time. Referrals: DAVID VILLA MD [Primary Care Provider] - Follow up as needed I personally performed the services described in the documentation, reviewed and edited the documentation which was dictated to the scribe in my presence, and it accurately records my words and actions.
[2019-11-03 12:47] VITALS: BP 102/70
== END 2019-11-03 12:47 | disposition home or self-care (01) ==
LOC: ER 09:39
DX: O26.892 Other specified pregnancy related conditions, second trimester (principal); R10.9 Unspecified abdominal pain; W01.198A Fall on same level from slipping, tripping and stumbling with subsequent striking against other object, initial encounter; Z3A.18 18 weeks gestation of pregnancy; Z87.59 Personal history of other complications of pregnancy, childbirth and the puerperium; Z87.891 Personal history of nicotine dependence
CPT/HCPCS: 76815; 81001; 81025; 99284

== ENCOUNTER 2019-12-23 20:45 | Outpatient (CLI) | payer MEDICAID ==
[2019-12-23 22:20] LABS: BACTERIA (WET MOUNT) 3+ BACTERIA SEEN; EPITHELIALS (WET MOUNT) 3+ EPITHELIALS SEEN; RBCS (WET MOUNT) 1+ RBCS SEEN; T.VAGINALIS (WET MOUNT) NO TRICHOMONAS SEEN; WBCS (WET MOUNT) 1+ WBCS SEEN; YEAST (WET MOUNT) NO YEAST SEEN
[2019-12-23 22:25] LABS: APPEARANCE,URINE CLEAR; BILIRUBIN,URINE NEGATIVE (NEGATIVE); COLOR,URINE STRAW; GLUCOSE, URINE NEGATIVE (NEGATIVE); KETONES,URINE NEGATIVE (NEGATIVE); LEUKOCYTE ESTERASE,URINE TRACE (NEGATIVE); NITRITE,URINE NEGATIVE (NEGATIVE); PROTEIN,URINE NEGATIVE (NEGATIVE); URINE SPECIFIC GRAVITY 1.005; UROBILINOGEN,URINE NEGATIVE mg/dL (<2.0)
[2019-12-23 22:40] LABS: URINE AMPHETAMINES SCREEN NEGATIVE; URINE BENZODIAZEPINES SCREEN NEGATIVE; URINE COCAINE SCREEN NEGATIVE; URINE MARIJUANA (THC) SCREEN NEGATIVE; URINE METHADONE SCREEN NEGATIVE; URINE PHENCYCLIDINE SCREEN NEGATIVE
[2019-12-23 22:41] LABS: URINE BARBITURATES SCREEN UNCONFIRMED POSITIVE
--- NOTE | 2019-12-23 23:02 | RADIOLOGY REPORT (SQ) ---
EXAM DESCRIPTION: US LIMITED COMPLETED DATE/TME: 12/23/2019 00:00 CLINICAL HISTORY: 24 years, Female, cervical length, fluid, presentation COMPARISON: Prior study from 11/03/2019 TECHNIQUE: Axial 2-D grayscale images of the pelvis were acquired. Doppler was utilized. LIMITATIONS: None. FINDINGS: Intrauterine is identified with measurements as follows: Biparietal diameter: 6.16 cm Head circumference: 23.47 cm Abdominal circumference: 21.3 cm Femoral length: 4.5 cm Estimated weight is 1867 g (1 lb. 15 oz.) Estimated gestational age is 25 weeks and 5 days for an estimated date of delivery of 04/01/2020 Cervical length is 3.4 cm heart rate is 144 bpm Amniotic fluid index is 15.6 cm; largest vertical pocket is 5.2 cm Placenta is posterior, grade 2. presentation is breech IMPRESSION: Single live intrauterine , as above described. copyright 2010 [employer]- All Rights Reserved
[2019-12-24 01:27] LABS: CHLAM PCR DETECTED (NOT DETECT)
== END 2019-12-23 23:07 | disposition home or self-care (01) ==
LOC: LC 20:45
PROVIDERS: ATTEND Student in an Organized Health Care Education/Training Program
DX: O36.8120 Decreased fetal movements, second trimester, not applicable or unspecified (principal); O26.892 Other specified pregnancy related conditions, second trimester; R00.0 Tachycardia, unspecified; R10.2 Pelvic and perineal pain; Z3A.26 26 weeks gestation of pregnancy; Z88.8 Allergy status to other drugs, medicaments and biological substances
CPT/HCPCS: 76815; 80307; 80345; 81005; 87210; 87491; 87591; 94760; G0480

== ENCOUNTER 2020-03-16 23:29 | Outpatient (CLI) | payer MEDICAID ==
[2020-03-17] MEDS ORDERED: HYDROXYZINE PAMOATE 50 MG CAPSULE ONE (00:28)
[2020-03-17] MEDS ORDERED: HYDROXYZINE PAMOATE 50 MG CAPSULE PO ONE (00:33)
--- NOTE | 2020-03-17 00:51 | Non Stress Test Report ---
Non Stress Test Datetime Report Generated by CPN: 03/17/2020 00:51 DEMOGRAPHIC EGA NST: 37.6 INDICATION Indication for Study (NST) Other: Labor check greater than 32 weeks VITAL SIGNS Temperature - NST: 97.0 Pulse - NST: 133 RESP - NST: 17 NBPSYS NST: 119 NBPDIA NST: 75 MONITORING Monitor Explained: Monitor Explained; Test Explained; Patient Verbalized Understanding Time on Monitor: 03/16/2020 22:59 Time off Monitor: 03/17/2020 00:23 NST Duration: 84 NST INTERVENTIONS NST Interventions: PO Hydration; Reposition Patient Physician Notified NST: Dr Torres BABY A: [id number] BABY A Movement : Present Contraction Frequency : irregular FHR Baseline : 125 Accelerations : 15X15 Decelerations : None Variability : Moderate 6-25bpm NST Review: Meets Criteria for Reactive NST NST Review and Verified By : Jah Nichols RN NST Results: Reactive NST REPORT Report Trigger: Send Report
== END 2020-03-17 00:39 | disposition home or self-care (01) ==
LOC: LC 23:29
PROVIDERS: ATTEND Obstetrics & Gynecology
DX: O47.1 False labor at or after 37 completed weeks of gestation (principal)
CPT/HCPCS: 59025; J3490

== ENCOUNTER 2020-03-25 05:03 | Inpatient (IN) | payer MEDICAID ==
[2020-03-19 08:52] LABS: AMORPHOUS SEDIMENT,URINE TRACE /HPF; APPEARANCE,URINE CLOUDY; BILIRUBIN,URINE NEGATIVE (NEGATIVE); COLOR,URINE YELLOW; GLUCOSE, URINE NEGATIVE (NEGATIVE); KETONES,URINE NEGATIVE (NEGATIVE); LEUKOCYTE ESTERASE,URINE SMALL (NEGATIVE); NITRITE,URINE NEGATIVE (NEGATIVE); PROTEIN,URINE 30 mg/dL (NEGATIVE); URINE SPECIFIC GRAVITY 1.019; UROBILINOGEN,URINE NEGATIVE mg/dL (<2.0)
[2020-03-19 08:54] LABS: ABSOLUTE BASOPHILS # (AUTO) 0.1 10^3/uL (0.0-0.2); ABSOLUTE EOSINOPHILS # (AUTO) 0.2 10^3/uL (0.0-0.6); ABSOLUTE LYMPHOCYTES (AUTO) 2.4 10^3/uL (0.5-4.7); ABSOLUTE MONOCYTES (AUTO) 0.8 10^3/uL (0.1-1.4); ABSOLUTE NEUT (AUTO) 9.7 10^3/uL (1.7-8.2); BASOPHILS % (AUTO) 0.5 % (0-2); EOSINOPHILS % (AUTO) 1.4 % (0-6); HEMATOCRIT 33.7 % (36.0-47.0); HEMOGLOBIN 11.5 g/dL (12.0-15.5); LYMPHOCYTES % (AUTO) 18.5 % (13-45); MEAN CORPUSCULAR HEMOGLOBIN 28.4 pg (27.0-33.4); MEAN CORPUSCULAR HGB CONC 34.2 g/dL (32.0-36.0); MEAN CORPUSCULAR VOLUME 83 fl (80-97); MONOCYTES % (AUTO) 5.9 % (3-13); PLATELET COUNT 217 10^3/uL (150-450); RED BLOOD COUNT 4.06 10^6/uL (3.72-5.28); RED CELL DISTRIBUTION WIDTH 13.9 % (11.5-14.0); SEGMENTED NEUTROPHILS % (AUTO) 73.7 % (42-78); TOTAL CELLS COUNTED % (AUTO) 100 %; WHITE BLOOD COUNT 13.2 10^3/uL (4.0-10.5)
[2020-03-19 09:19] LABS: URINE AMPHETAMINES SCREEN NEGATIVE; URINE BARBITURATES SCREEN NEGATIVE; URINE BENZODIAZEPINES SCREEN NEGATIVE; URINE COCAINE SCREEN NEGATIVE; URINE MARIJUANA (THC) SCREEN NEGATIVE; URINE METHADONE SCREEN NEGATIVE; URINE PHENCYCLIDINE SCREEN NEGATIVE
[~2020-03-25 05:03] MED LIST: CEFAZOLIN 2 GM/D5W RTU 2 GM/50 ML RTUPB IV PRN; LACTATED RINGERS 1000 ML IV PRN; LIDOCAINE 0.5% INJ-PF (5 MG/ML) 50 ML SDV SUBCUT PRN
[2020-03-25] MEDS ORDERED: GLYCOPYRROLATE INJ 0.4 MG/2 ML VIAL ONE (07:09)
[2020-03-25] MEDS ORDERED: OXYTOCIN 10 UNIT/ML VIAL ONE (07:09)
[2020-03-25] MEDS ORDERED: BUPIVACAINE HCL 0.5 % INJ/PF 30 ML SDV ONE (07:10)
[2020-03-25] MEDS ORDERED: KETOROLAC TROMETHAMINE INJ/PF 30 MG/1 ML SDV ONE (07:10)
[2020-03-25] MEDS ORDERED: PHENYLEPHRINE HCL INJ/PF 10 MG/1 ML SDV ONE (07:10)
[2020-03-25] MEDS ORDERED: FENTANYL CITRATE INJ/PF 100 MCG/2 ML AMPUL ONE (07:10)
[2020-03-25] MEDS ORDERED: MIDAZOLAM 2 MG/2 ML INJ ONE (07:10)
[2020-03-25] MEDS ORDERED: OXYTOCIN/0.9 % SODIUM CHLORIDE 30 UNIT/500 ML RTUINJ ONE (07:10)
[2020-03-25] MEDS ORDERED: ACETAMINOPHEN 1,000 MG/100 ML RTUPB IV ONE (07:11)
[2020-03-25] MEDS ORDERED: ONDANSETRON HCL INJ/PF 4 MG/2 ML SDV ONE (07:11)
[2020-03-25] MEDS ORDERED: EPHEDRINE SULFATE INJ 50 MG/1 ML AMPULE ONE (07:12)
[2020-03-25] MEDS ORDERED: CITRIC ACID/SODIUM CITRATE ORAL SOLN 15 ML UDCUP ONE (07:32)
[2020-03-25] MEDS ORDERED: CITRIC ACID/SODIUM CITRATE ORAL SOLN 15 ML UDCUP PO ONE (07:34)
[2020-03-25] MEDS ORDERED: CEFAZOLIN 2 GM/D5W RTU 2 GM/50 ML RTUPB IV ONE (08:05)
[2020-03-25] MEDS ORDERED: OXYCODONE-ACETAMINOPHEN 5-325 MG TABLET PO PRN ×3 (08:24→08:43)
[2020-03-25] MEDS ORDERED: MORPHINE SULFATE 10 MG/ML INJ IV PRN ×2 (08:24→08:43)
[2020-03-25] MEDS ORDERED: MEPERIDINE HCL/PF INJ 25 MG/1 ML DISP.SYRIN IV PRN (08:24)
[2020-03-25] MEDS ORDERED: FENTANYL CITRATE INJ/PF 100 MCG/2 ML AMPUL IV PRN ×3 (08:24)
[2020-03-25] MEDS ORDERED: DIPHENHYDRAMINE HCL 50 MG/ML VIAL IV PRN (08:24)
[2020-03-25] MEDS ORDERED: PROMETHAZINE HCL INJ 25 MG/1 ML VIAL IV PRN ×4 (08:24→11:30)
[2020-03-25] MEDS ORDERED: BUPIVACAINE HCL 0.25 % INJ/PF (2.5 MG/1 ML) 30 ML VIAL ONE (08:29)
[2020-03-25] MEDS ORDERED: OXYTOCIN/0.9 % SODIUM CHLORIDE 30 UNIT/500 ML RTUINJ IV PRN (08:43)
[2020-03-25] MEDS ORDERED: ACETAMINOPHEN 325 MG TABLET PO PRN (08:43)
[2020-03-25] MEDS ORDERED: ACETAMINOPHEN 1,000 MG/100 ML RTUPB IV PRN (08:43)
[2020-03-25] MEDS ORDERED: MEASLES,MUMPS&RUBELLA VACC/PF 0.5 ML VIAL SUBCUT PRN ×2 (08:43→11:30)
[2020-03-25] MEDS ORDERED: RINGERS SOLUTION,LACTATED 1,000 ML IV PRN (08:43)
[2020-03-25] MEDS ORDERED: DIPH/PERTUSS(ACELL)/TETANUS VAC/PF 0.5 ML SYR (>=10YO) IM PRN (08:43)
[2020-03-25] MEDS ORDERED: SIMETHICONE 80 MG TAB.CHEW PO PRN (08:43)
--- NOTE | 2020-03-25 08:49 | EKG REPORT ---
SEVERITY:- BORDERLINE ECG - SINUS TACHYCARDIA INFERIOR Q WAVES, PROBABLY NORMAL VARIATION : Confirmed by: Chun Monge MD 25-Mar-2020 08:48:05
--- NOTE | 2020-03-25 09:02 | Operative Report ---
Operative Report DATE OF SURGERY: 03/25/20 PREOPERATIVE DIAGNOSIS: IUP at 39 weeks, maternal tachycardia, elective primary POSTOPERATIVE DIAGNOSIS: Same OPERATION: Primary low transverse hysterotomy section SURGEON: SANTIAGO SEPULVEDA ANESTHESIA: Spinal COMPLICATIONS: None ESTIMATED BLOOD LOSS: 800 cc INTRAOPERATIVE FINDINGS: Male cephalic presentation Apgars of 8 and 9, Kiwi x2 pop-off's PROCEDURE: PROCEDURE IN DETAIL: The patient was taken to the operating room, prepared and draped in a normal sterile fashion in a supine position with a leftward tilt. A transverse skin incision was made with a scalpel and carried through to the underlying layer of fascia with the same scalpel. The fascia was excised in the midline and extended laterally with Pdama. The fascia was then dissected from the rectus muscle sharply with Padma and the rectus muscle was divided and the peritoneal cavity was entered sharply with the same Metzenbaum. With good visualization of the bladder and the uterus the bladder blade was inserted. The hysterotomy was nicked with a scalpel and extended laterally with surgeon finger fraction. The was then delivered atraumatically with the assistance of kiwi application x 2. The nose and mouth were suctioned with a suction bulb, the cord was clamped and cut and handed off to awaiting pediatricians. Cord blood was collected. The placenta was removed manually. The uterus was exteriorized and cleared of clots and debris. The hysterotomy was closed with 0 Monocryl in a running, locked fashion. A second layer of the same suture was used to imbricate to ensure hemostasis. The uterus was returned to the abdomen and peritoneal cavity was cleared of clots and debris. The rectus muscle and peritoneum were repaired with mattress stitch of 2-0 Chromic. The fascia was closed with 0-Vicryl. The subcutaneous layer was closed with plain catgut and the skin was closed with 4-0 Vicryl. The patient tolerated the procedure well. Sponge, lap, and needle counts correct x2 and the patient was taken to recovery in stable condition.
[2020-03-25] MEDS ORDERED: MORPHINE SULFATE 10 MG/ML INJ ONE (10:11)
--- NOTE | 2020-03-25 10:33 | Delivery Summary ---
Del Sum A-C Datetime Report Generated by CPN: 03/25/2020 10:32 DELIVERY PERSONNEL DELIVERY PERSONNEL: [id number] Delivery Doctor:: Maureen Armstrong MD Anesthesiologist:: Chas Prieto MD HOME LIGHTING ADVISER:: Armen Normile, HOME LIGHTING ADVISER Distribution Sales Manager:: Tracee Desai RN Neonatal Nurse Practitioner:: NESTOR Fernández Nursery Nurse:: Aleksandra Sellers RN Nursery Nurse:: Kwesi Bolivar RN Director Of Medicare/CHIEF INVESTIGATOR: Zunilda Salazar CST Director Of Medicare/CHIEF INVESTIGATOR: Griselda Dodson, INSTRUMENTATION FITTER MATERNAL INFORMATION Delivery Anesthesia: Spinal Medications After Delivery: Pitocin 30 Units in 500ml NS/D5W Delivery QBL: 395 Maternal Complications: None LABOR SUMMARY EDC: 03/31/2020 00:00 Attempted: No Labor Anesthesia: None LABOR INFORMATION Reason for Induction: Not Applicable Oxytocin: N/A Group B Beta Strep: Positive Steroids Given: None MEMBRANES Membranes Rupture Method: Artificial Rupture of Membranes: 03/25/2020 08:12 Length of Rupture (hr): 0.00 Amniotic Fluid Color: Clear Amniotic Fluid Amount: Moderate STAGES OF LABOR Stage 3 hr: 0 Stage 3 min: 1 VAGINAL DELIVERY Episiotomy: None Laceration #1: None Laceration Extension #1: N/A Laceration Repair: Not Applicable Sponge Count Correct: N/A Sharps Count Correct: N/A CSECTION DELIVERY Primary Indication: Other Other Primary Indication: Maternal Tachycardia CSection Urgency: Scheduled CSection Incidence: Primary Labor: No Labor Elective: Nonelective CSection Incision: Lower Uterine Transverse BABY A INFORMATION Infant Delivery Date/Time: 03/25/2020 08:12 Method of Delivery: Nurse Controlled Delivery: No Born in Route : No : N/A Forceps: N/A Vacuum Extraction: Successful Shoulder Dystocia : No ASSISTED DELIVERY BABY A Vacuum Number of Pulls: 1 Vacuum Number of PopOffs: 1 Vacuum Tungsten Refiner: Kiwi Total Time Vacuum Applied: 20 seconds Vacuum/Forceps Comment: Vaccum applied to head for 1 pull during c/s PRESENTATION/POSITION BABY A Presentation: Cephalic Cephalic Presentation: Vertex Breech Presentation: N/A PLACENTA INFORMATION BABY A Placenta Delivery Time : 03/25/2020 08:13 Placenta Method of Delivery: Manual Removal Placenta Status: Delivered INFORMATION BABY A Gestational Age at Delivery: 39.1 Gestational Status: Full Term- 39- 40.6 Weeks Outcome : Liveborn Infant Condition : Stable Sex: Male IDENTIFICATION BABY A Verification Date/Time: 03/25/2020 08:08 ID Band Number: [id number] Mother's Name Verified: Yes Infant RN Verifying Infant: MJordin Mixon RN, A. Lloyd RN CORD INFORMATION BABY A No. Cord Vessels: 3 Cord Blood Taken: Yes-For Storage (Mom's Blood type +) Suction: Mouth; Nose ASSESSMENT BABY A Skin to Skin: Yes Skin to Skin Time (min): 15 BABY B INFORMATION : N/A
--- NOTE | 2020-03-25 10:33 | Birth Certificate Data ---
Cert Data Datetime Report Generated by CPN: 03/25/2020 10:32 CERTIFICATE DATA 48b. Now Livin (12/23/2019 21:17:Tracee Desai, RN) RISK FACTORS IN THIS 49c. Previous Births: 0 (12/23/2019 21:17:Tracee Desai, RN) Mother's Height 50b. Height Inches: 62 (03/25/2020 08:10:QS system process) Mother's Weight 51b. Weight at Delivery (lbs): 222 (03/25/2020 08:10:QS system process) Infections Present/Treated Results this Hospital Visit: Negative (12/23/2019 21:17:Jeffery Nichols RN) 53e. Hepatitis C: Negative (12/23/2019 21:17:Jeffery Nichols RN) 53j. Test Result: Negative (12/23/2019 21:17:Jeffery Nichols RN) Onset of Labor 56a. PROM >12 Hrs: 0.00 (12/23/2019 21:17:QS system process) 57a. Induction of Labor: N/A (12/23/2019 21:17:Irene Mixon RN) 57c. Non-Vertex Presentation A: Vertex (12/23/2019 21:17:Irene Mixon RN) 57d. Steroids - Lung Mat: None (12/23/2019 21:17:Irene Mixon RN) 57g. Moderate/Heavy Meconium: Clear (12/23/2019 21:17:Irene Mixon RN) 57h. Intolerance of Labor: Other (12/23/2019 21:17:Irene Mixon RN) : Maternal Tachycardia (12/23/2019 21:17:Irene Mixon RN) 57i. Epidural/Spinal Anesthesia: None (12/23/2019 21:17:Irene Mixon RN) Method of Delivery 58a. Forceps - Unsuccessful A: N/A (12/23/2019 21:17:Irene Mixon RN) 58b. Vacuum - Unsuccessful A: Successful (12/23/2019 21:17:Irene Mixon, MARIANNE) 58c. Presentation at 58c. Presentation at - A : Vertex (12/23/2019 21:17:Irene Mixon RN) 58c. Presentation at - A : N/A (12/23/2019 21:17:Irene Mixon RN) 58c. Presentation at - A : Cephalic (12/23/2019 21:17:Irene Mixon RN) Final Route and Method of Del 58d. Baby A Route/Delivery: (12/23/2019 21:17:Irene Mixon RN) 58e. Trial of Labor Attempted: No (12/23/2019 21:17:Irene Mixon RN) 58e. Trial of Labor Attempted A: N/A (12/23/2019 21:17:Irene Mixon RN) 58e. Trial of Labor Attempted B: N/A (12/23/2019 21:17:Irene Mixon RN) Maternal Morbidity 59b. 3rd or 4th Degree Lacs: None (12/23/2019 21:17:Irene Mixon RN) 61. GA at Delivery Baby A: 39.1 (12/23/2019 21:17:Irene Mixon RN) : Full Term- 39- 40.6 Weeks (12/23/2019 21:17:QS system process)
[2020-03-25] MEDS ORDERED: PROMETHAZINE HCL INJ 25 MG/1 ML VIAL ONE (10:42)
[2020-03-25] MEDS: OXYCODONE-ACETAMINOPHEN 5-325 MG TABLET PO PRN ×2 (12:29→19:41)
[2020-03-25] MEDS: PRENATAL VITAMIN W DHA CAPSULE PO SCH (12:32)
[2020-03-25] MEDS: DOCUSATE SODIUM 100 MG CAPSULE PO SCH ×2 (12:32→17:40)
[2020-03-25] MEDS ORDERED: KETOROLAC TROMETHAMINE INJ/PF 30 MG/1 ML SDV IV SCH (14:00)
[2020-03-25] MEDS: KETOROLAC TROMETHAMINE INJ/PF 30 MG/1 ML SDV IV SCH (17:40)
[2020-03-26] MEDS: OXYCODONE-ACETAMINOPHEN 5-325 MG TABLET PO PRN ×6 (00:33→23:24)
[2020-03-26] MEDS: KETOROLAC TROMETHAMINE INJ/PF 30 MG/1 ML SDV IV SCH (02:21)
[2020-03-26 08:04] LABS: HEMATOCRIT 29.9 % (36.0-47.0); HEMOGLOBIN 10.4 g/dL (12.0-15.5); MEAN CORPUSCULAR HEMOGLOBIN 28.8 pg (27.0-33.4); MEAN CORPUSCULAR HGB CONC 34.6 g/dL (32.0-36.0); MEAN CORPUSCULAR VOLUME 83 fl (80-97); PLATELET COUNT 144 10^3/uL (150-450); WHITE BLOOD COUNT 10.2 10^3/uL (4.0-10.5)
[2020-03-26] MEDS: IBUPROFEN 800 MG TABLET PO SCH ×3 (08:35→21:36)
[2020-03-26] MEDS: FAMOTIDINE 20 MG TABLET PO SCH ×2 (08:35→21:36)
[2020-03-26] MEDS ORDERED: MAG HYDROX/AL HYDROX/SIMETH SUSP 30 ML UDCUP PO ONE (09:00)
[2020-03-26] MEDS: DOCUSATE SODIUM 100 MG CAPSULE PO SCH ×2 (10:32→19:13)
[2020-03-26] MEDS: PRENATAL VITAMIN W DHA CAPSULE PO SCH (10:33)
[2020-03-26] MEDS ORDERED: IBUPROFEN 800 MG TABLET PO SCH (12:00)
--- NOTE | 2020-03-26 12:47 | PDOC PROGRESS REPORT ---
Subjective-OB Progress Note for:: 03/26/20 Subjective: 24yo s/p primary ppd1. Pt ambulating, voiding and passing gas without difficulty. Reports pain well controlled with medication. No concerns today Physical Exam (OB) Vital Signs: Temp Pulse Resp BP Pulse Ox 98.2 F 91 16 110/80 100 03/26/20 11:46 03/26/20 11:46 03/26/20 11:46 03/26/20 11:46 03/26/20 11:46 Intake & Output 03/25/20 03/26/20 03/27/20 06:59 06:59 06:59 Intake Total 1860 400 Output Total 2750 Balance -890 400 Weight 101.151 kg - General General Appearance: Appears well In distress: None - PIH/Pre-Eclampsia Headache: Absent Epigastric Pain: No Visual Changes: No - Dressing Removed: Yes Incision: Dressing Closure Type: opsite - Maternal Morbidity 59. Maternal Morbidity (serious complications experinced by the mother associated with labor and delivery: None of the above - Lochia Lochia Amount: Small 10-25 ml Lochia Color: Rubra/Red - Abdomen Description: Soft Hernia Present: No Fundal Description: Firm, Midline Fundal Height: u/u - u/2 - Respiratory Respiratory Status: No respiratory distress - Extremities Upper extremity: Normal inspection Lower extremities: Normal inspection - Neurological Cognition: Normal Orientation: AAOx4 - Psychological Associated symptoms: Normal affect, Normal mood Objective-Diagnostic Laboratory: 03/26/20 07:25 03/26/20 07:25 WBC 10.2 RBC 3.60 L Hgb 10.4 L Hct 29.9 L MCV 83 MCH 28.8 MCHC 34.6 RDW 14.0 Plt Count 144 L Assessment and Plan(PN) - Assessment and Plan (1) Tachycardia Is this a current diagnosis for this admission?: Yes Plan: resolved for the most part after delivery (a couple elevated HR overnight), continue to monitor, pt denies any current s/s. (2) Acute blood loss anemia Is this a current diagnosis for this admission?: Yes Plan: increase dietary iron and FeSO4 BID (3) Thrombocytopenia Is this a current diagnosis for this admission?: Yes Plan: Warning s/s reviewed, will repeat cbc in the am (4) Vacuum-assisted delivery, delivered, current hospitalization Is this a current diagnosis for this admission?: Yes Plan: routine pp care - Time Spent with Patient Time with patient: Less than 15 minutes Medications reviewed and adjusted accordingly: Yes - Disposition Anticipated Discharge Disposition: Home, Self Care Anticipated Discharge Timeframe: within 24 hours
[2020-03-27] MEDS: OXYCODONE-ACETAMINOPHEN 5-325 MG TABLET PO PRN ×5 (03:51→23:31)
[2020-03-27] MEDS: IBUPROFEN 800 MG TABLET PO SCH ×4 (03:52→22:05)
[2020-03-27 07:24] LABS: HEMOGLOBIN 11.2 g/dL (12.0-15.5); MEAN CORPUSCULAR HEMOGLOBIN 28.4 pg (27.0-33.4); MEAN CORPUSCULAR HGB CONC 33.9 g/dL (32.0-36.0); MEAN CORPUSCULAR VOLUME 84 fl (80-97); PLATELET COUNT 167 10^3/uL (150-450); RED BLOOD COUNT 3.94 10^6/uL (3.72-5.28); RED CELL DISTRIBUTION WIDTH 14.3 % (11.5-14.0); WHITE BLOOD COUNT 9.2 10^3/uL (4.0-10.5)
[2020-03-27] MEDS: PRENATAL VITAMIN W DHA CAPSULE PO SCH ×2 (09:33→14:29)
[2020-03-27] MEDS: FAMOTIDINE 20 MG TABLET PO SCH ×2 (09:33→22:05)
[2020-03-27] MEDS: DOCUSATE SODIUM 100 MG CAPSULE PO SCH ×2 (09:33→18:39)
--- NOTE | 2020-03-27 10:39 | PDOC PROGRESS REPORT ---
Subjective-OB Progress Note for:: 03/27/20 Subjective: reports bleeding slowing, pain controlled with current meds. denies needs Physical Exam (OB) Vital Signs: Temp Pulse Resp BP Pulse Ox 97.7 F 90 16 116/75 100 03/27/20 07:52 03/27/20 07:52 03/27/20 07:52 03/27/20 07:52 03/27/20 07:52 Intake & Output 03/26/20 03/27/20 03/28/20 06:59 06:59 06:59 Intake Total 1860 940 Output Total 2750 Balance -890 940 - Dressing Removed: No - Opsite in Place Incision: Dressing Closure Type: opsite - Maternal Morbidity 59. Maternal Morbidity (serious complications experinced by the mother ass ociated with labor and delivery: None of the above - Abdomen Description: Tender, Soft, Round Hernia Present: No Fundal Description: Firm, Midline Fundal Height: u/u - u/2 - Abdominal Distension: No distension - Extremities Lower extremities: Tiarra's sign - neg Calf: Normal, Nontender Objective-Diagnostic Laboratory: 03/27/20 07:09 03/27/20 07:09 WBC 9.2 RBC 3.94 Hgb 11.2 L Hct 33.0 L MCV 84 MCH 28.4 MCHC 33.9 RDW 14.3 H Plt Count 167 Assessment and Plan(PN) - Time Spent with Patient Medications reviewed and adjusted accordingly: Yes - Disposition Anticipated Discharge Disposition: Home, Self Care Anticipated Discharge Timeframe: within 48 hours
[2020-03-28] MEDS: IBUPROFEN 800 MG TABLET PO SCH ×2 (04:01→09:33)
[2020-03-28] MEDS: OXYCODONE-ACETAMINOPHEN 5-325 MG TABLET PO PRN ×2 (04:02→10:40)
[2020-03-28] MEDS: DOCUSATE SODIUM 100 MG CAPSULE PO SCH (09:30)
[2020-03-28] MEDS: PRENATAL VITAMIN W DHA CAPSULE PO SCH (09:32)
[2020-03-28] MEDS: FAMOTIDINE 20 MG TABLET PO SCH (09:34)
--- NOTE | 2020-03-28 10:47 | PDOC DISCHARGE SUMMARY ---
Impression - Admit/DC Date/PCP Admission Date/Primary Care Provider: 03/25/20 05:03 ALFREDO FERNANDEZ MD Discharge Date: 03/28/20 - Discharge Diagnosis (1) Delivery by elective section Is this a current diagnosis for this admission?: Yes (2) Tachycardia Is this a current diagnosis for this admission?: Yes (3) Vacuum-assisted delivery, delivered, current hospitalization Is this a current diagnosis for this admission?: Yes - Additional Information Resuscitation Status: Full Code Discharge Diet: Regular Discharge Activity: Balance Activity w/Rest, No Lifting Over 10 Pounds, No Lifting/Push/Pulling, Pelvic Rest, No tub bath Referrals: ALFREDO FERNANDEZ MD [Primary Care Provider] - Prescriptions: Oxycodone HCl/Acetaminophen [Percocet 5-325 mg Tablet] 1 tab PO Q4HP PRN #30 tablet PRN Reason: For Pain Scale 3-5 Ibuprofen [Motrin 800 mg Tablet] 800 mg PO Q8HP PRN #60 tablet PRN Reason: Home Medications: Atenolol [Tenormin] 12.5 mg PO DAILY PRN 03/16/20 Hydroxyzine HCl [Atarax 10 mg Tablet] 10 mg PO DAILY PRN 03/25/20 Ibuprofen [Motrin 800 mg Tablet] 800 mg PO Q8HP PRN #60 tablet 03/28/20 Oxycodone HCl/Acetaminophen [Percocet 5-325 mg Tablet] 1 tab PO Q4HP PRN #30 tablet 03/28/20 HPI Gestational Age: 39 Reason(s) for Admission: Ceasarean Section-Primary Procedures: NST Intrapartum Procedure(s): Spontaneous Vaginal Delivery, : Low Cervical, Transverse Hospital Course 59. Maternal Morbidity (serious complications experinced by the mother associated with labor and delivery: None of the above Results Laboratory Results: WBC 9.2 10^3/uL (4.0-10.5) 03/27/20 07:09 RBC 3.94 10^6/uL (3.72-5.28) 03/27/20 07:09 Hgb 11.2 g/dL (12.0-15.5) L 03/27/20 07:09 Hct 33.0 % (36.0-47.0) L 03/27/20 07:09 MCV 84 fl (80-97) 03/27/20 07:09 MCH 28.4 pg (27.0-33.4) 03/27/20 07:09 MCHC 33.9 g/dL (32.0-36.0) 03/27/20 07:09 RDW 14.3 % (11.5-14.0) H 03/27/20 07:09 Plt Count 167 10^3/uL (150-450) 03/27/20 07:09 Lymph % (Auto) 18.5 % (13-45) 03/19/20 08:09 [place] % (Auto) 5.9 % (3-13) 03/19/20 08:09 Eos % (Auto) 1.4 % (0-6) 03/19/20 08:09 Baso % (Auto) 0.5 % (0-2) 03/19/20 08:09 Absolute Neuts (auto) 9.7 10^3/uL (1.7-8.2) H 03/19/20 08:09 Absolute Lymphs (auto) 2.4 10^3/uL (0.5-4.7) 03/19/20 08:09 Absolute Monos (auto) 0.8 10^3/uL (0.1-1.4) 03/19/20 08:09 Absolute Eos (auto) 0.2 10^3/uL (0.0-0.6) 03/19/20 08:09 Absolute Basos (auto) 0.1 10^3/uL (0.0-0.2) 03/19/20 08:09 Seg Neutrophils % 73.7 % (42-78) 03/19/20 08:09 Urine Color YELLOW 03/19/20 08:05 Urine Appearance CLOUDY 03/19/20 08:05 Urine pH 6.0 (5.0-9.0) 03/19/20 08:05 Ur Specific [place] 1.019 03/19/20 08:05 Urine Protein 30 mg/dL (NEGATIVE) H 03/19/20 08:05 Urine Glucose (UA) NEGATIVE mg/dL (NEGATIVE) 03/19/20 08:05 Urine Ketones NEGATIVE mg/dL (NEGATIVE) 03/19/20 08:05 Urine Blood NEGATIVE (NEGATIVE) 03/19/20 08:05 Urine Nitrite NEGATIVE (NEGATIVE) 03/19/20 08:05 Urine Bilirubin NEGATIVE (NEGATIVE) 03/19/20 08:05 Urine Urobilinogen NEGATIVE mg/dL (<2.0) 03/19/20 08:05 Ur Leukocyte Esterase SMALL (NEGATIVE) H 03/19/20 08:05 Urine WBC (Auto) 5 /HPF 03/19/20 08:05 Urine RBC (Auto) 1 /HPF 03/19/20 08:05 Urine Bacteria (Auto) 1+ /HPF 03/19/20 08:05 Squamous Epi Cells Auto 5 /HPF 03/19/20 08:05 Amorphous Sediment Auto TRACE /HPF 03/19/20 08:05 Urine Mucus (Auto) FEW /LPF 03/19/20 08:05 Urine Ascorbic Acid NEGATIVE (NEGATIVE) 03/19/20 08:05 Urine Opiates Screen NEGATIVE 03/19/20 08:05 Urine Methadone Screen NEGATIVE 03/19/20 08:05 Ur Barbiturates Screen NEGATIVE 03/19/20 08:05 Ur Phencyclidine Scrn NEGATIVE 03/19/20 08:05 Ur Amphetamines Screen NEGATIVE 03/19/20 08:05 U Benzodiazepines Scrn NEGATIVE 03/19/20 08:05 Urine Cocaine Screen NEGATIVE 03/19/20 08:05 U Marijuana (THC) Screen NEGATIVE 03/19/20 08:05 COVID-19 Source NASOPHARYNGEAL 03/19/20 08:10 COVID-19 (SHANA) NOT DETECTED 03/19/20 08:10 Blood Type A POSITIVE 03/24/20 11:01 Antibody Screen NEGATIVE 03/24/20 11:01 Plan Plan of Treatment: f/u at [facility] for post op check as scheduled Time Spent: Less than 30 Minutes
[2020-03-28 11:41] VITALS: BP 127/87
== END 2020-03-28 14:05 | disposition home or self-care (01) | DRG 787 ==
LOC: 2N 05:03
PROVIDERS: ADMIT Obstetrics & Gynecology; ATTEND Obstetrics & Gynecology
PROC: 10D00Z1 Extraction of Products of Conception, Low, Open Approach (ICD-10-PCS; principal; 2020-03-25)
DX: O99.824 Streptococcus B carrier state complicating childbirth (principal); D62 Acute posthemorrhagic anemia; O99.42 Diseases of the circulatory system complicating childbirth; O99.12 Other diseases of the blood and blood-forming organs and certain disorders involving the immune mechanism complicating childbirth; R00.0 Tachycardia, unspecified; D69.6 Thrombocytopenia, unspecified; O90.81 Anemia of the puerperium; Z03.818 Encounter for observation for suspected exposure to other biological agents ruled out; Z88.8 Allergy status to other drugs, medicaments and biological substances; Z3A.39 39 weeks gestation of pregnancy; Z37.0 Single live birth
CPT/HCPCS: 1961; 36415; 59025; 64486; 76942; 80307; 81001; 85025; 85027; 86850; 86900; 86901; 87635; 93005; 93010; 94760; 94799; C9803; J0131; J0690; J1885; J2250; J2270; J2370; J2405; J2550; J2590; J3010; J3490; J7120